=== PATIENT | male | born 1950 | race Two or more races ===

== ENCOUNTER 2018-07-21 19:03 | Inpatient (IN) | payer MEDICARE, MEDICAID ==
[~2018-07-21] VITALS: Ht 188 cm; Wt 113.4 kg
[2018-07-21] MEDS ORDERED: oxyCODONE HCL/Acetaminophen 5/325mg ORAL ONE ×2 (19:15→21:00)
[2018-07-21 19:20] VITALS: BP 125/89
--- NOTE | 2018-07-21 19:20 | NUR ---
ED Nurse Note: Pt was BIBA from SNF. C/O right leg celluilitis for 2-3 weeks and pain 10/10. Pt is A/O X 4, right leg redness and edema 3+, which was infected wound. Vital signs stable at this time, waiting for orders.
--- NOTE | 2018-07-21 20:30 | NUR ---
ED Nurse Note: Blood and urine sample collected and sent to Lab.
[2018-07-21 20:45] LABS: APPEARANCE,URINE CLEAR; BILIRUBIN, URINE NEGATIVE (NEGATIVE); COLOR,URINE PALE YELLOW; GLUCOSE, URINE (UA) NEGATIVE (NEGATIVE); KETONES,URINE NEGATIVE (NEGATIVE); LEUKOCYTE ESTERASE ,URINE 2+ (NEGATIVE); NITRITE,URINE NEGATIVE (NEGATIVE); PH,URINE 5 (4.5-8.0); PROTEIN,URINE 1+ (NEGATIVE); UROBILINOGEN,URINE NORMAL MG/DL (0.0-1.0)
[2018-07-21 20:52] LABS: BASOPHILS % (AUTO) 1.4 % (0.0-2.0); EOSINOPHILS % (AUTO) 1.7 % (0.0-3.0); HEMATOCRIT 39.6 % (42.0-52.0); HEMOGLOBIN 12.6 G/DL (14.2-18.0); LYMPHOCYTES % (AUTO) 7.9 % (20.0-45.0); MEAN CORPUSCULAR VOLUME 85 FL (80-99); PLATELET COUNT 177 K/UL (150-450); RED BLOOD COUNT 4.67 M/UL (4.70-6.10); RED CELL DISTRIBUTION WIDTH 18.1 % (11.6-14.8); WHITE BLOOD COUNT 10.7 K/UL (4.8-10.8)
--- NOTE | 2018-07-21 20:52 | NUR ---
ED Nurse Note: Pain meds given as ordered.
[2018-07-21 20:58] LABS: INR 1.2 (0.9-1.1)
[2018-07-21 21:03] LABS: ANION GAP 6 mmol/L (5-15); BLOOD UREA NITROGEN 35 mg/dL (7-18); CALCIUM 9.1 MG/DL (8.5-10.1); CARBON DIOXIDE 29 MMOL/L (21-32); CHLORIDE 103 MMOL/L (98-107); POTASSIUM 4.5 MMOL/L (3.5-5.1); SODIUM 138 MMOL/L (136-145)
[2018-07-21] MEDS ORDERED: Piperacillin/Tazobactam 3.375 GM in NS 110 ML IVPB ONE (21:15)
[2018-07-21] MEDS ORDERED: Vancomycin 1.5 GM in NS 275 ML IVPB ONE (21:15)
[2018-07-21 21:16] LABS: ALANINE AMINOTRANSFERASE 21 U/L (12-78); ALBUMIN 3.3 G/DL (3.4-5.0); ALBUMIN/GLOBULIN RATIO 0.8 (1.0-2.7); ALKALINE PHOSPHATASE 92 U/L (46-116); ASPARTATE AMINO TRANSFERASE 16 U/L (15-37); BILIRUBIN,TOTAL 1.2 MG/DL (0.2-1.0); CREATINE KINASE 64 U/L (26-308)
[2018-07-21 21:26] LABS: BILIRUBIN,DIRECT 0.3 MG/DL (0.0-0.3)
--- NOTE | 2018-07-21 21:27 | Emergency Room Report ---
History of Present Illness General Chief Complaint: Skin Rash/Abscess Source: Patient, EMS Present Illness HPI The patient presents with a chronic wound that is worsening on his right lower leg. This is being followed at a [place] [facility] as an outpatient. Patient denies any fevers or chills however the pain is increasing. Pain is sharp and aching at the site where the wounds are. There is also erythema of the skin. There is no pus but there is drainage. Status post coronary artery bypass graft surgery. History of of congestive heart failure. No orthopnea or chest pain. Patient claims his tetanus is up-to-date. No nausea, vomiting, diarrhea, dysuria, cough, sore throat. Patient is not amatory and therefore there are no exertional symptoms. Allergies: Uncoded Allergies: MUSHROOMS (Allergy, Unknown, 07/21/18) Patient History Past Medical History: see triage record Past Surgical History: CABG Social History: Denies: smoking Social History Narrative SNF Reviewed Nursing Documentation: PMH: Agreed; PSxH: Agreed Nursing Documentation-PMH Past Medical History: No History, Except For Hx Cardiac Problems: Yes - heart failure Hx Hypertension: Yes Hx Diabetes: Yes - type 2 Review of Systems All Other Systems: negative except mentioned in HPI Physical Exam Vital Signs Date Time Temp Pulse Resp B/P (MAP) Pulse Ox O2 Delivery O2 Flow Rate FiO2 07/21/18 18:56 97.9 84 16 125/89 99 Room Air Sp02 EP Interpretation: reviewed, normal General Appearance: well appearing, no apparent distress, GCS 15, non-toxic Head: normocephalic, atraumatic Eyes: bilateral eye normal inspection, bilateral eye PERRL, bilateral eye EOMI ENT: moist mucus membranes Neck: supple Respiratory: lungs clear, normal breath sounds Cardiovascular #1: regular rate, rhythm, edema - Right greater than left leg Cardiovascular #2: 2+ radial (R) Gastrointestinal: normal inspection, normal bowel sounds, non tender, no mass, non-distended Genitourinary: no CVA tenderness Musculoskeletal: back normal, normal range of motion Neurologic: alert, motor strength/tone normal, sensory intact, oriented - X2 Psychiatric: mood/affect normal Skin: warm/dry, other - Open wound right leg with serous drainage no pus also erythema Medical Decision Making Diagnostic Impression: Primary Impression: Cellulitis and abscess of lower extremity Additional Impressions: CHF (congestive heart failure) Qualified Codes: I50.9 - Heart failure, unspecified Renal insufficiency UTI (urinary tract infection) Qualified Codes: N39.0 - Urinary tract infection, site not specified ER Course Patient presents with erythema and increased pain and weeping right lower leg. Differential includes gangrene, cellulitis, edema, abscess, ulcer and DVT amongst others. Patient will be evaluated with EKG, chest x-ray labs include blood culture and wound culture. Treatment will be with oral analgesics and gentle IV hydration. EKG without injury. Chest x-ray post coronary artery bypass graft surgery and evidence of cardiomegaly and congestive failure which is mild. Labs with leukocytosis, renal insufficiency, elevated BNP. Due to BNP and chest x-ray IV hydration stopped. Antibiotics are begun. Patient improved with treatment however due to comorbidities and appearance of the wound right leg patient is admitted to the hospital for IV antibiotics and wound care evaluation. Admit medical floor Dr. Martinez. Laboratory Tests Test 07/21/18 20:27 White Blood Count 10.7 K/UL (4.8-10.8) Red Blood Count 4.67 M/UL (4.70-6.10) L Hemoglobin 12.6 G/DL (14.2-18.0) L Hematocrit 39.6 % (42.0-52.0) L Mean Corpuscular Volume 85 FL (80-99) Mean Corpuscular Hemoglobin 27.0 PG (27.0-31.0) Mean Corpuscular Hemoglobin Concent 31.9 G/DL (32.0-36.0) L Red Cell Distribution Width 18.1 % (11.6-14.8) H Platelet Count 177 K/UL (150-450) Mean Platelet Volume 7.0 FL (6.5-10.1) Neutrophils (%) (Auto) 80.0 % (45.0-75.0) H Lymphocytes (%) (Auto) 7.9 % (20.0-45.0) L Monocytes (%) (Auto) 9.0 % (1.0-10.0) Eosinophils (%) (Auto) 1.7 % (0.0-3.0) Basophils (%) (Auto) 1.4 % (0.0-2.0) Prothrombin Time 12.8 SEC (9.30-11.50) H Prothrombin Time INR 1.2 (0.9-1.1) H PTT 31 SEC (23-33) Urine Color Pale yellow Urine Appearance Clear Urine pH 5 (4.5-8.0) Urine Specific [place] 1.015 (1.005-1.035) Urine Protein 1+ (NEGATIVE) H Urine Glucose (UA) Negative (NEGATIVE) Urine Ketones Negative (NEGATIVE) Urine Blood Negative (NEGATIVE) Urine Nitrite Negative (NEGATIVE) Urine Bilirubin Negative (NEGATIVE) Urine Urobilinogen Normal MG/DL (0.0-1.0) Urine Leukocyte Esterase 2+ (NEGATIVE) H Urine RBC 0-2 /HPF (0 - 0) H Urine WBC 5-10 /HPF (0 - 0) H Urine Squamous Epithelial Cells None /LPF (NONE/OCC) Urine Bacteria Few /HPF (NONE) Sodium Level 138 MMOL/L (136-145) Potassium Level 4.5 MMOL/L (3.5-5.1) Chloride Level 103 MMOL/L (98-107) Carbon Dioxide Level 29 MMOL/L (21-32) Anion Gap 6 mmol/L (5-15) Blood Urea Nitrogen 35 mg/dL (7-18) H Creatinine 2.0 MG/DL (0.55-1.30) H Estimate Glomerular Filtration Rate 33.6 mL/min (>60) Glucose Level 112 MG/DL (74-106) H Lactic Acid Level 1.20 mmol/L (0.4-2.0) Calcium Level 9.1 MG/DL (8.5-10.1) Total Bilirubin 1.2 MG/DL (0.2-1.0) H Direct Bilirubin 0.3 MG/DL (0.0-0.3) Aspartate Amino Transferase (AST) 16 U/L (15-37) Alanine Aminotransferase (ALT) 21 U/L (12-78) Alkaline Phosphatase 92 U/L (46-116) Total Creatine Kinase 64 U/L (26-308) Troponin I 0.003 ng/mL (0.000-0.056) Pro-B-Type Natriuretic Peptide 29086 pg/mL (0-125) H Total Protein 7.5 G/DL (6.4-8.2) Albumin 3.3 G/DL (3.4-5.0) L Globulin 4.2 g/dL Albumin/Globulin Ratio 0.8 (1.0-2.7) L EKG Diagnostic Results Rate: normal Rhythm: NSR ST Segments: no acute changes - !st degree av block pvc Rhythm Strip Diag. Results EP Interpretation: yes Rhythm: NSR, no PVC's, no ectopy Chest X-Ray Diagnostic Results Chest X-Ray Diagnostic Results : Chest X-Ray Ordered: Yes # of Views/Limited/Complete: 1 View Indication: Other EP Interpretation: Yes Interpretation: no effusion, no pneumothorax, other - inc cor CABG Impression: Other Electronically Signed by: Electronically signed by Wai Rdz MD Last Vital Signs Date Time Temp Pulse Resp B/P (MAP) Pulse Ox O2 Delivery O2 Flow Rate FiO2 07/22/18 04:00 99.2 66 17 118/51 (73) 07/22/18 00:03 Room Air 07/21/18 23:28 99 Status: improved Disposition: ADMITTED INPATIENT Condition: Serious Referrals: Harsha Martinez MD (PCP) Wai Rdz MD Jul 21, 2018 21:27
--- NOTE | 2018-07-21 22:30 | NUR ---
ED Nurse Note: Vanco meds given. Wound c/s, MRSA, VRE SWAB collected and sent to Lab.
--- NOTE | 2018-07-21 23:28 | NUR ---
TRANSFER TO FLOOR: Patient [facility] as ordered. Report given to Helga/EMERY. Belongings sent with Pt and rechecked with RN. Pt is A/O X 4.
--- NOTE | 2018-07-22 | NUR ---
NURSE NOTES: Received patient from ER, reconciled medications, admit orders were obtained from MD and carried out. Patient is awake, alert, oriented, hard of hearing, incontinent times two, full code, on 2 gm sodium diet. VSS, afebrile, oriented patient to his room, patient is able to make his needs known. Call light is within reach, bed is in low position, locked and alarm is on. Will continue to monitor for safety and comfort.
[2018-07-22] MEDS ORDERED: ZOLPIDEM TARTRA10 MG ORAL (00:35)
[2018-07-22] MEDS ORDERED: ASPIR 8181 MG ORAL (00:35)
[2018-07-22] MEDS ORDERED: NOVOLOG100 UNIT/5 (00:35)
[2018-07-22] MEDS ORDERED: TERAZOSIN HCL2 MG PO (00:35)
[2018-07-22] MEDS ORDERED: LEVEMIR FL100 UNIT/2 SQ (00:35)
[2018-07-22] MEDS ORDERED: ALDACTONE25 MG ORAL (00:35)
[2018-07-22] MEDS ORDERED: HYDRALAZINE HCL25 M2 PO (00:35)
[2018-07-22] MEDS ORDERED: ACETAMINOPHEN325 M1 ORAL (00:35)
[2018-07-22] MEDS ORDERED: FLOMAX0.4 MG ORAL (00:35)
[2018-07-22] MEDS ORDERED: DIOVAN HCT 80MG1 TAB ORAL (00:35)
[2018-07-22] MEDS: HYDROcodone/Acetamin 10/325 tab ORAL PRN ×4 (03:50→20:01)
--- NOTE | 2018-07-22 03:56 | NUR ---
NURSE NOTES: Patient refused assessment by RN on his right foot cellulitis. CN was made aware.
[2018-07-22 04:00] VITALS: BP 118/51
[2018-07-22] MEDS ORDERED: HydrALAZINE 25mg tab ORAL SCH (06:00)
[2018-07-22] MEDS: NovoLOG Insulin Flexpen SUBQ SCH ×4 (06:45→20:34)
--- NOTE | 2018-07-22 07:10 | NUR ---
HAND-OFF: Report given to Mily LAND.
--- NOTE | 2018-07-22 07:29 | NUR ---
NURSE NOTES: Patient alert x4; on room air, no sign of distress and shortness of breath; IV Right For-arm flushes well; bed at lowest position, side rails up x2, breaks engaged; call light within reach; will keep monitoring.
[2018-07-22 08:00] VITALS: BP 102/70
[2018-07-22] MEDS: Tamsulosin 0.4mg cap ORAL SCH (08:25)
[2018-07-22] MEDS: HydrALAZINE 25mg tab ORAL SCH ×2 (08:25→16:17)
[2018-07-22] MEDS: Aspirin EC 81mg tab ORAL SCH (08:25)
[2018-07-22] MEDS: Spironolactone 25mg tab ORAL SCH (08:25)
[2018-07-22] MEDS ORDERED: Heparin 5000 units/ml inj SUBQ ONE (09:00)
[2018-07-22] MEDS ORDERED: Heparin 5000 units/ml inj SUBQ SCH (09:00)
--- NOTE | 2018-07-22 10:21 | Diagnostic Imaging Report ---
Indication: Shortness of breath Technique: One view of the chest Comparison: none Findings: The heart is enlarged. There is mild interstitial prominence diffusely. There may be curly B-lines peripherally. No focal airspace consolidation. No effusions. There is evidence of prior CABG Impression: Cardiomegaly Equivocal mild interstitial congestive changes. Correlate with clinical findings
--- NOTE | 2018-07-22 11:53 | NUR ---
NURSE NOTES: Vanoc Rx to pharmacy to dose, I spoke to pharmacist and pharmacy is the one to dose it.
[2018-07-22 12:00] VITALS: BP 113/79
[2018-07-22] MEDS ORDERED: Piperacillin/Tazobactam 3.375 GM in NS 110 ML IVPB SCH (13:30)
--- NOTE | 2018-07-22 14:54 | Diagnostic Imaging Report ---
APPROVED REPORT CPT Code: 16275 Present Symptoms Comments: Pain wound in the right ankle BILATERAL: Imaging reveals a patent deep venous system bilaterally. There is no evidence of thrombus within the common femoral, superficial femoral, popliteal or tibial segments. The greater saphenous veins are within normal limits. Doppler indicates normal spontaneous flow within these segments.
--- NOTE | 2018-07-22 15:22 | NUR ---
NURSE NOTES:WOUND CARE NOTES:Pt presented on admission with ulcerations ulcerations to Medial, Posterior and lateral aspect of R lower ext. Wounds are large but shallow with scattered yellow slough at base of wound.Irregular margins that are erythematous. Surrounding erythema with edema noted. Wounds exuding moderate amts serous exudate. Pt complains of pain when R leg elevated.Scars from Historical harvest graft noted to medial R tibia. Erythema noted to LLE .Xerosis skin LLE . Pt educated to importance of good hygiene practices .Instructed to wash and moisturize dry skin daily.Instructed to wash between toes but to avoid applying lotion between toes. Tx.Plan:Cleanse wounds R lower ext with Saline. Apply Silvasorb Gel to wounds. Apply Alginate. Cover with ABD pads. Wrap with Kerlix from Base of Toes to [place] Daily and PRN.
[2018-07-22 16:00] VITALS: BP 115/54
[2018-07-22] MEDS: Piperacillin/Tazobactam 3.375 GM in NS 110 ML IVPB SCH ×2 (16:17→22:43)
--- NOTE | 2018-07-22 16:44 | NUR ---
[employer] 68 Y/O MALE BIBA FROM [facility] TO [facility] CC:SKIN RASH/ABSCESS SI:CELLULITIS VS: BP 125/89, P 84, T 97.9, RR 16, SpO2 99 RBC 4.67, Hgb 12.6, Hct 39.6, BUN 35, Cr 2.0 IS:PERCOCET 5-325 1tab NS x1L IV VANCOMYCIN 275ml IVPB ZOSYN 110ml IVPB ADMITTED TO MED/SURG DCP: RETURN TO [facility]
--- NOTE | 2018-07-22 16:46 | Infectious Diseases Prog Note ---
Assessment/Plan Problems: (1) Cellulitis and abscess of lower extremity Assessment & Plan: continue vancomycin , add zosyn empirically, send wound culture , and blood culture, will order vascular study to rule out PVD or DVT (2) Sepsis Assessment & Plan: possible due to the above, continue wide spectrum antibiotics pending cultures (3) UTI (urinary tract infection) Assessment & Plan: already on zosyn pending culture (4) Renal insufficiency (5) Wound of right lower extremity Assessment & Plan: with infection and blisters, rule out underlying osteomyelitis , will order MRI of the right leg to confirm , continue wide spectrum antibiotics Subjective Allergies: Uncoded Allergies: MUSHROOMS (Allergy, Unknown, 07/21/18) Objective Vital Signs Last 24 Hour Vital Signs Date Time Temp Pulse Resp B/P (MAP) Pulse Ox O2 Delivery O2 Flow Rate FiO2 07/22/18 16:17 115/54 07/22/18 16:00 98.1 61 19 115/54 (74) 100 07/22/18 14:31 97.7 07/22/18 12:13 97.7 07/22/18 12:00 98.0 71 16 113/79 (90) 100 07/22/18 09:00 Room Air 07/22/18 08:25 102/70 07/22/18 08:00 97.7 72 18 102/70 (81) 99 07/22/18 04:00 99.2 66 17 118/51 (73) 07/22/18 00:03 Room Air 07/21/18 23:28 97.9 83 16 123/84 99 Room Air 07/21/18 19:20 97.9 83 16 125/89 99 Room Air 07/21/18 18:56 97.9 84 16 125/89 99 Room Air Height (Feet): 6 Height (Inches): 2.00 Weight (Pounds): 250 Microbiology Date/Time Source Procedure Growth Status 07/21/18 23:00 Leg Right Gram Stain - Final Resulted 07/21/18 23:00 Leg Right Wound Culture Pending Resulted Laboratory Tests Test 07/21/18 20:27 White Blood Count 10.7 K/UL (4.8-10.8) Red Blood Count 4.67 M/UL (4.70-6.10) L Hemoglobin 12.6 G/DL (14.2-18.0) L Hematocrit 39.6 % (42.0-52.0) L Mean Corpuscular Volume 85 FL (80-99) Mean Corpuscular Hemoglobin 27.0 PG (27.0-31.0) Mean Corpuscular Hemoglobin Concent 31.9 G/DL (32.0-36.0) L Red Cell Distribution Width 18.1 % (11.6-14.8) H Platelet Count 177 K/UL (150-450) Mean Platelet Volume 7.0 FL (6.5-10.1) Neutrophils (%) (Auto) 80.0 % (45.0-75.0) H Lymphocytes (%) (Auto) 7.9 % (20.0-45.0) L Monocytes (%) (Auto) 9.0 % (1.0-10.0) Eosinophils (%) (Auto) 1.7 % (0.0-3.0) Basophils (%) (Auto) 1.4 % (0.0-2.0) Prothrombin Time 12.8 SEC (9.30-11.50) H Prothromb Time International Ratio 1.2 (0.9-1.1) H Activated Partial Thromboplast Time 31 SEC (23-33) Urine Color Pale yellow Urine Appearance Clear Urine pH 5 (4.5-8.0) Urine Specific [place] 1.015 (1.005-1.035) Urine Protein 1+ (NEGATIVE) H Urine Glucose (UA) Negative (NEGATIVE) Urine Ketones Negative (NEGATIVE) Urine Blood Negative (NEGATIVE) Urine Nitrite Negative (NEGATIVE) Urine Bilirubin Negative (NEGATIVE) Urine Urobilinogen Normal MG/DL (0.0-1.0) Urine Leukocyte Esterase 2+ (NEGATIVE) H Urine RBC 0-2 /HPF (0 - 0) H Urine WBC 5-10 /HPF (0 - 0) H Urine Squamous Epithelial Cells None /LPF (NONE/OCC) Urine Bacteria Few /HPF (NONE) Sodium Level 138 MMOL/L (136-145) Potassium Level 4.5 MMOL/L (3.5-5.1) Chloride Level 103 MMOL/L (98-107) Carbon Dioxide Level 29 MMOL/L (21-32) Anion Gap 6 mmol/L (5-15) Blood Urea Nitrogen 35 mg/dL (7-18) H Creatinine 2.0 MG/DL (0.55-1.30) H Estimat Glomerular Filtration Rate 33.6 mL/min (>60) Glucose Level 112 MG/DL (74-106) H Lactic Acid Level 1.20 mmol/L (0.4-2.0) Calcium Level 9.1 MG/DL (8.5-10.1) Total Bilirubin 1.2 MG/DL (0.2-1.0) H Direct Bilirubin 0.3 MG/DL (0.0-0.3) Aspartate Amino Transf (AST/SGOT) 16 U/L (15-37) Alanine Aminotransferase (ALT/SGPT) 21 U/L (12-78) Alkaline Phosphatase 92 U/L (46-116) Total Creatine Kinase 64 U/L (26-308) Troponin I 0.003 ng/mL (0.000-0.056) Pro-B-Type Natriuretic Peptide 30278 pg/mL (0-125) H Total Protein 7.5 G/DL (6.4-8.2) Albumin 3.3 G/DL (3.4-5.0) L Globulin 4.2 g/dL Albumin/Globulin Ratio 0.8 (1.0-2.7) L Current Medications Medications (Trade) Dose Ordered Sig/Aureliano Route PRN Reason Start Time Stop Time Status Last Admin Dose Admin Acetaminophen (Tylenol) 325 mg Q4H PRN ORAL Mild Pain (Pain Scale 1-3) 07/22/18 01:45 08/21/18 01:44 07/22/18 11:43 Acetaminophen/ Hydrocodone Bitart ([place] 10/325) 1 tab Q4H PRN ORAL For Pain 07/22/18 00:00 07/29/18 00:00 07/22/18 14:01 Aspirin (Ecotrin) 81 mg DAILY ORAL 07/22/18 09:00 08/21/18 08:59 07/22/18 08:25 Dextrose (Dextrose 50%) 25 ml Q30M PRN IV Hypoglycemia 07/22/18 06:15 08/21/18 06:14 Dextrose (Dextrose 50%) 50 ml Q30M PRN IV Hypoglycemia 07/22/18 06:15 08/21/18 06:14 Hydralazine HCl (Apresoline) 25 mg Q8HR@0000,0800,1600 ORAL 07/22/18 08:00 08/21/18 07:59 07/22/18 16:17 Insulin Aspart (NovoLOG) BEFORE MEALS AND HS SUBQ 07/22/18 06:30 08/21/18 06:29 07/22/18 12:23 Piperacillin Sod/ Tazobactam Sod 3.375 gm/Sodium Chloride 110 ml @ 27.5 mls/hr EVERY 8 HOURS IVPB 07/22/18 15:30 07/29/18 15:29 07/22/18 16:17 Potassium Chloride (K-Dur) 20 meq DAILY ORAL 07/22/18 09:00 08/21/18 08:59 07/22/18 08:25 Spironolactone (Aldactone) 25 mg DAILY ORAL 07/22/18 09:00 08/21/18 08:59 07/22/18 08:25 Tamsulosin HCl (Flomax) 0.4 mg DAILY ORAL 07/22/18 09:00 08/21/18 08:59 07/22/18 08:25 Terazosin HCl (Hytrin) 2 mg BEDTIME ORAL 07/22/18 21:00 08/21/18 20:59 Vancomycin HCl (Vanco rx to dose) 1 ea DAILY MISC 07/22/18 09:00 08/21/18 08:59 Zolpidem Tartrate (Ambien) 5 mg BEDTIME PRN ORAL Insomnia 07/22/18 01:45 07/29/18 01:44 Linda Suazo M.D. July 22, 2018 16:46
--- NOTE | 2018-07-22 17:00 | NUR ---
NURSE NOTES: Wound care provided, patient tolerated well.
--- NOTE | 2018-07-22 19:15 | History and Physical Report ---
DATE OF ADMISSION: 07/21/2018 HISTORY OF PRESENT ILLNESS: This is a 68-year-old male, who came to the emergency room for having bilateral leg edema and cellulitis and right leg ulcer, which has been nonhealing and progressively worse. The patient denies any fever or chills. PAST MEDICAL HISTORY: Significant for renal insufficiency, diabetes, hypertension, comorbid obesity, and poor compliance. MEDICATIONS: See the list. ALLERGIES: NKA. FAMILY HISTORY: Noncontributory. SOCIAL HISTORY: The patient lives in a retirement, mostly wheelchair bound. REVIEW OF SYSTEMS: Generalized weakness. Tired. Intractable pain on both legs, as well as . PHYSICAL EXAMINATION: GENERAL: This is an elderly male, whose blood pressure is 130/90, pulse 74, and respirations 19. No fever. SKIN: Good skin turgor. HEENT: Mild jugular venous distention. CHEST: Bilaterally few crackles. CARDIOVASCULAR: Regular rhythm. Tachycardia. ABDOMEN: Soft. Positive bowel sounds. EXTREMITIES: Right leg ulcer and draining in both the legs. GENITOURINARY: Deferred. He has a poor circulation. LABORATORY EXAMINATION: White counts are 11,000. BUN and creatinine are high. Creatinine 2.5. ASSESSMENT: 1. Right leg non-healing ulcer. 2. Bilateral cellulitis. 3. CHF. 4. Hypertension. 5. Diabetes. 6. Chronic back pain. PLAN: We will admit on medical floor. Start intravenous Lasix and intravenous antibiotic, vancomycin. Check arterial venous duplex and consider ID consult as well as consider Nephro consult. Mik Martinez M.D. DR: LINDSAY JOB#: [id number] CC:
--- NOTE | 2018-07-22 19:28 | NUR ---
NURSE NOTES: Received patient in bed, awake, alert, oriented x 4, able to make his needs known, no acute distress noted, VSS, afebrile. Call light within reach, bed is in low position, locked and alarm is on. Will continue to monitor for safety and comfort.
--- NOTE | 2018-07-22 19:43 | NUR ---
HAND-OFF: Report given to EMERY Devine.
[2018-07-22 20:00] VITALS: BP 111/77
[2018-07-22] MEDS: Zolpidem 5mg tab ORAL PRN (20:25)
[2018-07-22] MEDS ORDERED: Vancomycin 1.5gm Premix IVPB SCH (21:00)
[2018-07-22] MEDS ORDERED: Vancomycin 1gm in D5W 275ml IVPB SCH (21:00)
[2018-07-22] MEDS ORDERED: Terazosin 1mg cap ORAL SCH (21:00)
--- NOTE | 2018-07-22 23:45 | Consultation ---
DATE OF CONSULTATION: 07/22/2018 INFECTIOUS DISEASES CONSULTATION CONSULTING PHYSICIAN: Linda Suazo M.D. REQUESTING PHYSICIAN: Harsha Martinez M.D. REASON FOR CONSULTATION: Right leg abscess, open wounds with blisters, and severe cellulitis. Recommendation for antibiotics treatment. HISTORY OF PRESENT ILLNESS: The patient is a 68-year-old male with past medical history of coronary artery disease, status post coronary artery bypass graft with vein harvested from the right lower extremity, diabetes, poorly controlled, hypertension, and heart failure, who had an issue with his right leg since his coronary artery bypass graft surgery, presented to [facility] emergency room with worsening right lower extremity redness, erythema, and wounds with purulent drainage. The patient had big blisters on his right leg, which burst couple of days ago and he started draining yellowish like material from both wounds. Right leg became red, tender, and swollen with inability to walk or put weight on them, on the right leg mainly. The patient was found to have significant redness and large medial anterior and lateral posterior wound in the mid right leg. So, he was started on vancomycin and Infectious Disease consultation was requested for antibiotics treatment and further management. PAST MEDICAL HISTORY: Significant for diabetes, hypertension, coronary artery disease, and heart failure. PAST SURGICAL HISTORY: He had coronary artery bypass graft. MEDICATIONS: He received vancomycin and Zosyn in the emergency room and currently on vancomycin. For the rest of his medications, please refer to [facility]. ALLERGIES: He is allergic to mushroom. FAMILY HISTORY: Noncontributory. SOCIAL HISTORY: The patient lives at home with his girlfriend. He is unemployed. Denied using any drugs, tobacco, or alcohol. REVIEW OF SYSTEMS: A 14-point of system reviewed were all negative apart from the one I mentioned above in my History and Physical. PHYSICAL EXAMINATION: VITAL SIGNS: Temperature 98.1, pulse 61, respirations 19, blood pressure 115/54, and saturation 100% on room air. GENERAL: A middle-aged male, lying in bed, awake, alert, and oriented x3, not in acute distress. HEENT: Normocephalic and atraumatic. Pupils are reactive to light equally. Moist oral mucosa. No exudate or thrush. NECK: Supple. No lymphadenopathy. CARDIOVASCULAR: Regular rate and rhythm. No murmur or gallop. LUNGS: Clear bilaterally. Diminished breathing sounds at the bases. No wheezing or rhonchi. ABDOMEN: Soft, nontender, and nondistended. Normal bowel sounds. No hepatosplenomegaly. No ascites. No rebound. EXTREMITY: He had significant right leg redness, edema, and tenderness with large wounds on the right posterior mid leg and right anterior mid leg area. Purulent discharge from both wounds with surrounding cellulitis, tenderness, and warmth. LABORATORY DATA: Labs showed white count of 10.7, hemoglobin of 12.6, and platelet count of 177,000. BUN of 35 and creatinine of 2. AST of 16 and ALT of 21. Urine analysis showed +2 leukocyte esterase, wbc 5 to 10, and few bacteria. IMAGING: Chest x-ray showed equivocal mild interstitial congestive changes. Venous Doppler showed patent deep vein system bilaterally. No evidence of thrombus within the common femoral, superficial, popliteal, or tibial segment. ASSESSMENT AND RECOMMENDATION: 1. Cellulitis and abscess of the right lower extremity. Continue vancomycin renally dosed by pharmacy. Add Zosyn empiric coverage. Send wound culture and blood culture. We will order arterial study to rule out peripheral vascular disease. The patient had venous Doppler, which was negative. 2. Sepsis due to the above, possible. Continue wide-spectrum antibiotics pending blood culture. 3. Wounds of the right lower extremity with infection and blisters . Rule out underlying osteo. We will order MRI of the right leg to confirm. Continue wide-spectrum antibiotics coverage for now. 4. Urinary tract infection. The patient is already on Zosyn pending culture. 5. Renal insufficiency. Continue hydration and renally dosed medicine as per pharmacy. Avoid nephrotoxic medications. Thank you for the consult. ID will continue to follow. Please feel free to call with any question. Linda Suazo M.D. DR: KASEY JOB#: [id number] CC:
[2018-07-23] VITALS: BP 127/86
[2018-07-23] MEDS: HydrALAZINE 25mg tab ORAL SCH ×3 (00:44→17:06)
[2018-07-23 04:00] VITALS: BP 122/84
[2018-07-23] MEDS: Piperacillin/Tazobactam 3.375 GM in NS 110 ML IVPB SCH ×3 (05:39→21:10)
[2018-07-23] MEDS: HYDROcodone/Acetamin 10/325 tab ORAL PRN ×4 (05:39→20:10)
[2018-07-23] MEDS: NovoLOG Insulin Flexpen SUBQ SCH ×4 (05:45→21:10)
--- NOTE | 2018-07-23 07:12 | NUR ---
HAND-OFF: Report given to Mily LAND.
--- NOTE | 2018-07-23 07:39 | NUR ---
NURSE NOTES: Patient alert x4, on room air, no sign of distress and shortness of breath; no sign of chest pain; IV Right For-arm, flushes well; bed at lowest position, side rails up, bed at lowest position; will check blood check as schedule; call light within reach; will keep monitoring.
[2018-07-23 08:00] VITALS: BP 117/80
[2018-07-23] MEDS: Tamsulosin 0.4mg cap ORAL SCH ×2 (08:55→17:06)
[2018-07-23] MEDS: Spironolactone 25mg tab ORAL SCH (08:55)
[2018-07-23] MEDS: Aspirin EC 81mg tab ORAL SCH (08:55)
[2018-07-23 12:00] VITALS: BP 124/88
--- NOTE | 2018-07-23 12:38 | NUR ---
NURSE NOTES: I received prescription of medication for patient and its on patient's chart. Addendum: 07/23/18 at 1239 by Ashli Benitez RN Please disregard the previous note. Its for another patient.
--- NOTE | 2018-07-23 13:36 | Consultation ---
History of Present Illness General Date patient seen: July 23, 2018 Reason for Hospitalization: Skin Rash/Abscess Present Illness HPI 68 year old male with past medical history of CAD s/p CABG with vein harvested from the right lower extremity, diabetes, hypertension, and heart failure, who presented to [facility] emergency room with worsening right lower extremity, redness, erythema, and wounds with drainage. States has had chronic issues with right leg since CABG. intermittent episodes of cellulitis and chronic wound changes. notes pain in leg and foot but improved since admission. no n/v/f/c. otherwise well. labs noted. Allergies: Uncoded Allergies: MUSHROOMS (Allergy, Unknown, 07/21/18) Medication History Scheduled Aspirin* (Aspir 81*), 81 MG ORAL DAILY, (Reported) Spironolactone (Aldactone), 25 MG ORAL DAILY, (Reported) Tamsulosin HCl (Flomax), 0.4 MG ORAL DAILY, (Reported) Valsartan (Diovan), 1 TAB ORAL DAILY, (Reported) Scheduled PRN Acetaminophen* (Acetaminophen 325MG Tablet*), 325 MG ORAL Q4H PRN for Mild Pain (Pain Scale 1-3), (Reported) Zolpidem Tartrate* (Zolpidem Tartrate*), 10 MG ORAL BEDTIME PRN for Insomnia, ( Reported) Miscellaneous Medications Hydralazine HCl (Hydralazine HCl), 25 MG PO, (Reported) Insulin Aspart (Novolog), (Reported) Insulin Detemir (Levemir Flextouch), 100 UNIT SQ, (Reported) Terazosin Hcl (Terazosin Hcl), 2 MG PO, (Reported) Patient History History Provided By: Patient, Medical Record, PMD Healthcare decision maker N Resuscitation status Full Code Advanced Directive on File No Past Medical/Surgical History Past Medical/Surgical History: (1) CHF (congestive heart failure) (2) Renal insufficiency (3) UTI (urinary tract infection) (4) Sepsis (5) Cellulitis and abscess of lower extremity (6) Wound of right lower extremity Review of Systems Review of Symptoms General ROS: no weight loss or fever Psychological ROS: no depression or mood changes, no memory loss Ophthalmic ROS: no visual changes or eye irritation ENT ROS: no nasal congestion, hearing loss, dizziness Allergy and Immunology ROS: no allergic symptoms or urticaria Hematological and Lymphatic ROS: no swollen glands, unusual bleeding or bruising Endocrine ROS: no polyuria, polydipsia, weight changes, temperature intolerance Respiratory ROS: no cough, shortness of breath, or wheezing Cardiovascular ROS: no chest pain or dyspnea on exertion Gastrointestinal ROS: denies abdominal pain, no bright red blood in stool. Musculoskeletal ROS: no myalgias or arthralgias Neurological ROS: no TIA or stroke symptoms Dermatological ROS: no new or changing skin lesions, rashes or pruritis Physical Exam Physical Exam General appearance: alert, cooperative, no distress, appears stated age Head: Normocephalic, without obvious abnormality, atraumatic Eyes: conjunctivae/corneas clear. PERRL, EOM's intact. Fundi benign Throat: Lips, mucosa, and tongue normal. Teeth and gums normal Neck: supple, symmetrical, trachea midline, no adenopathy, thyroid: not enlarged, symmetric, no tenderness/mass/nodules, no carotid bruit and no JVD Lungs: clear to auscultation bilaterally Heart: regular rate and rhythm, S1, S2 normal, no murmur, click, rub or gallop Abdomen: soft, non-tender. Bowel sounds normal. No masses, no organomegaly Extremities: extremities with edema and chronic skin changes from venous insufficiency. also noted to have cellulitis of right leg with multiple open wounds healing, atraumatic, no cyanosis Pulses: 2+ and symmetric Skin: Skin color, texture, turgor normal. No rashes or lesions Neurologic: Grossly normal Last 24 Hour Vital Signs Date Time Temp Pulse Resp B/P (MAP) Pulse Ox O2 Delivery O2 Flow Rate FiO2 07/23/18 12:00 97.6 83 19 124/88 (100) 98 07/23/18 11:26 98.9 07/23/18 09:31 98.9 07/23/18 09:00 Room Air 07/23/18 08:55 117/80 07/23/18 08:00 98.9 72 18 117/80 (92) 100 07/23/18 04:00 98.8 81 16 122/84 (97) 07/23/18 00:44 127/85 07/23/18 00:00 98.6 73 17 127/86 (100) 07/22/18 21:00 Room Air 07/22/18 20:00 98.7 75 17 111/77 (88) 07/22/18 16:17 115/54 07/22/18 16:00 98.1 61 19 115/54 (74) 100 Intake and Output 07/22/18 07/23/18 18:59 06:59 Intake Total 535.0 ml 507.5 ml Balance 535.0 ml 507.5 ml Intake Oral 480 ml 480 ml IV Total 55.0 ml 27.5 ml Laboratory Tests Test 07/22/18 18:15 Random Vancomycin Level 0.4 ug/mL Height (Feet): 6 Height (Inches): 2.00 Weight (Pounds): 250 Medications Current Medications Medications (Trade) Dose Ordered Sig/Aureliano Route PRN Reason Start Time Stop Time Status Last Admin Dose Admin Acetaminophen (Tylenol) 325 mg Q4H PRN ORAL Mild Pain (Pain Scale 1-3) 07/22/18 01:45 08/21/18 01:44 07/23/18 09:01 Acetaminophen/ Hydrocodone Bitart ([place] 10/325) 1 tab Q4H PRN ORAL For Pain 07/22/18 00:00 07/29/18 00:00 07/23/18 10:56 Aspirin (Ecotrin) 81 mg DAILY ORAL 07/22/18 09:00 08/21/18 08:59 07/23/18 08:55 Dextrose (Dextrose 50%) 25 ml Q30M PRN IV Hypoglycemia 07/22/18 06:15 08/21/18 06:14 Dextrose (Dextrose 50%) 50 ml Q30M PRN IV Hypoglycemia 07/22/18 06:15 08/21/18 06:14 Hydralazine HCl (Apresoline) 25 mg Q8HR@0000,0800,1600 ORAL 07/22/18 08:00 08/21/18 07:59 07/23/18 08:55 Insulin Aspart (NovoLOG) BEFORE MEALS AND HS SUBQ 07/22/18 06:30 08/21/18 06:29 07/23/18 12:02 Piperacillin Sod/ Tazobactam Sod 3.375 gm/Sodium Chloride 110 ml @ 27.5 mls/hr EVERY 8 HOURS IVPB 07/22/18 15:30 07/29/18 15:29 07/23/18 13:08 Potassium Chloride (K-Dur) 20 meq DAILY ORAL 07/22/18 09:00 08/21/18 08:59 07/23/18 08:55 Spironolactone (Aldactone) 25 mg DAILY ORAL 07/22/18 09:00 08/21/18 08:59 07/23/18 08:55 Tamsulosin HCl (Flomax) 0.4 mg DAILY ORAL 07/22/18 09:00 08/21/18 08:59 07/23/18 08:55 Terazosin HCl (Hytrin) 2 mg BEDTIME ORAL 07/22/18 21:00 08/21/18 20:59 07/22/18 20:25 Vancomycin HCl (Vanco rx to dose) 1 ea DAILY MISC 07/22/18 09:00 08/21/18 08:59 Zolpidem Tartrate (Ambien) 5 mg BEDTIME PRN ORAL Insomnia 07/22/18 01:45 07/29/18 01:44 07/22/18 20:25 Assessment/Plan Problem List: (1) CHF (congestive heart failure) ICD Codes: I50.9 - Heart failure, unspecified SNOMED: 11995607 Qualifiers: Qualified Codes: I50.9 - Heart failure, unspecified (2) Renal insufficiency ICD Codes: N28.9 - Disorder of kidney and ureter, unspecified SNOMED: 081547388, 195834013 (3) UTI (urinary tract infection) ICD Codes: N39.0 - Urinary tract infection, site not specified SNOMED: 49488608, 363559825 Qualifiers: Qualified Codes: N39.0 - Urinary tract infection, site not specified (4) Sepsis ICD Codes: A41.9 - Sepsis, unspecified organism SNOMED: 23041289 (5) Cellulitis and abscess of lower extremity Assessment & Plan: Patient presented on admission with ulcerations ulcerations to Medial, Posterior and lateral aspect of Right lower extremity. Wounds are large but shallow with scattered yellow slough at base of wound. Irregular margins that are erythematous. Surrounding erythema with edema noted. Wounds exuding moderate amounts of serous exudate. Pt complains of pain when R leg elevated. Scars from Historical harvest graft noted to medial R tibia. Erythema noted to LLE . Xerosis skin LLE . Pt educated to importance of good hygiene practices .Instructed to wash and moisturize dry skin daily.Instructed to wash between toes but to avoid applying lotion between toes. Tx.Plan: Cleanse wounds R lower ext with Saline. Apply Silvasorb Gel to wounds. Apply Alginate. Cover with ABD pads. Wrap with Kerlix from Base of Toes to [place] Daily and PRN. Keep lower extremities elevated when possible to help with venous outflow Abx as per ID, input noted and appreciated Will follow with recs thank you ICD Codes: L03.119 - Cellulitis of unspecified part of limb; L02.419 - Cutaneous abscess of limb, unspecified SNOMED: 554818565 (6) Wound of right lower extremity ICD Codes: S81.801A - Unspecified open wound, right lower leg, initial encounter SNOMED: 96901608, 534929045 Ezekiel Macias July 23, 2018 13:36
--- NOTE | 2018-07-23 14:29 | Cardiology Report ---
APPROVED REPORT EKG Measurement Heart [id number] MS [id number] Sinus rhythm with 1st degree AV block with occasional premature ventricular complexes Rightward axis Left bundle branch block Abnormal ECG
--- NOTE | 2018-07-23 15:53 | Consultation ---
Consult Note Consult Note asked to eval for renal insufficiency The patient presents with a chronic wound that is worsening on his right lower leg. This is being followed at a [facility] facility as an outpatient. Patient denies any fevers or chills however the pain is increasing. Pain is sharp and aching at the site where the wounds are. There is also erythema of the skin. There is no pus but there is drainage. Status post coronary artery bypass graft surgery. History of of congestive heart failure. No orthopnea or chest pain. Patient claims his tetanus is up-to-date. No nausea, vomiting, diarrhea, dysuria, cough, sore throat. Patient is not amatory and therefore there are no exertional symptoms. Allergies: MUSHROOMS (Allergy, Unknown, 07/21/18) Past Surgical History: CABG Social History: Denies: smoking Social History Narrative SNF Past Medical History: No History, Except For Hx Cardiac Problems: Yes - heart failure Hx Hypertension: Yes Hx Diabetes: Yes - type 2 data reviewed patient examined Assessment/Plan Renal failure , Acute on chronic DM, Proteinuria HTN Cellulitis and abscess of lower extremity , Wound of right lower extremity UTI (urinary tract infection) Keep BP and BS in check antibiotics Urine studies Avoid Nephrotoxics Per orders Michael Eaton MD July 23, 2018 15:53
[2018-07-23 16:00] VITALS: BP 128/81
--- NOTE | 2018-07-23 16:18 | NUR ---
NURSE NOTES: Dressing on the Right Cellulitis changed as Dr Macias ordered. Patient tolerated well.
--- NOTE | 2018-07-23 16:33 | Infectious Diseases Prog Note ---
Assessment/Plan Problems: (1) Cellulitis and abscess of lower extremity Assessment & Plan: continue vancomycin , add zosyn empirically, send wound culture , and blood culture, will order vascular study to rule out PVD or DVT (2) Sepsis Assessment & Plan: possible due to the above, continue wide spectrum antibiotics pending cultures (3) UTI (urinary tract infection) Assessment & Plan: already on zosyn pending culture (4) Renal insufficiency Assessment & Plan: continue hydration, monitor renal function (5) Wound of right lower extremity Assessment & Plan: with infection and blisters, rule out underlying osteomyelitis , will order MRI of the right leg to confirm , continue wide spectrum antibiotics Subjective Constitutional: Reports: no symptoms HEENT: Reports: no symptoms Respiratory: Reports: no symptoms Breasts: Reports: no symptoms Cardiovascular: Reports: no symptoms Gastrointestinal/Abdominal: Reports: no symptoms Genitourinary: Reports: no symptoms Neurologic: Reports: no symptoms Psychiatric: Reports: no symptoms Skin: Reports: ulcer Endocrine: Reports: no symptoms Hematologic: Reports: no symptoms Musculoskeletal: Reports: pain, swelling Allergies: Uncoded Allergies: MUSHROOMS (Allergy, Unknown, 07/21/18) Objective Vital Signs Last 24 Hour Vital Signs Date Time Temp Pulse Resp B/P (MAP) Pulse Ox O2 Delivery O2 Flow Rate FiO2 07/23/18 15:34 Room Air 07/23/18 12:00 97.6 83 19 124/88 (100) 98 07/23/18 11:26 98.9 07/23/18 09:31 98.9 07/23/18 09:00 Room Air 07/23/18 08:55 117/80 07/23/18 08:00 98.9 72 18 117/80 (92) 100 07/23/18 04:00 98.8 81 16 122/84 (97) 07/23/18 00:44 127/85 07/23/18 00:00 98.6 73 17 127/86 (100) 07/22/18 21:00 Room Air 07/22/18 20:00 98.7 75 17 111/77 (88) Height (Feet): 6 Height (Inches): 2.00 Weight (Pounds): 250 General Appearance: WD/WN, no acute distress HEENT: normocephalic, atraumatic, anicteric, mucous membranes moist, PERRL, EOMI, pharynx normal, supple, no JVD Respiratory/Chest: chest wall non-tender, lungs clear, normal breath sounds, no respiratory distress, no accessory muscle use Cardiovascular: normal peripheral pulses, normal rate, regular rhythm, no gallop/murmur, no JVD Abdomen: normal bowel sounds, soft, non tender, no organomegaly, non distended , no mass, no scars Extremities: no cyanosis, no clubbing Skin: no rash, no lesions, no ulcers Neurologic/Psychiatric: alert, oriented x 3, responsive Lymphatic: no neck adenopathy, no groin adenopathy Musculoskeletal: normal muscle bulk, no effusion Microbiology Date/Time Source Procedure Growth Status 07/21/18 20:38 Blood Blood Culture - Preliminary NO GROWTH AFTER 24 HOURS Resulted 07/21/18 20:27 Blood Blood Culture - Preliminary NO GROWTH AFTER 24 HOURS Resulted 07/21/18 23:00 Leg Right Gram Stain - Final Resulted 07/21/18 23:00 Leg Right Wound Culture Pending Resulted Laboratory Tests Test 07/22/18 18:15 Random Vancomycin Level 0.4 ug/mL Current Medications Medications (Trade) Dose Ordered Sig/Aureliano Route PRN Reason Start Time Stop Time Status Last Admin Dose Admin Acetaminophen (Tylenol) 325 mg Q4H PRN ORAL Mild Pain (Pain Scale 1-3) 07/22/18 01:45 08/21/18 01:44 07/23/18 09:01 Acetaminophen/ Hydrocodone Bitart ([place] 10/325) 1 tab Q4H PRN ORAL For Pain 07/22/18 00:00 07/29/18 00:00 07/23/18 16:03 Aspirin (Ecotrin) 81 mg DAILY ORAL 07/22/18 09:00 08/21/18 08:59 07/23/18 08:55 Clonidine HCl (Catapres Tab) 0.1 mg Q4H PRN ORAL BP over 160 syst 07/23/18 16:00 08/22/18 15:59 Dextrose (Dextrose 50%) 25 ml Q30M PRN IV Hypoglycemia 07/22/18 06:15 08/21/18 06:14 Dextrose (Dextrose 50%) 50 ml Q30M PRN IV Hypoglycemia 07/22/18 06:15 08/21/18 06:14 Docusate Sodium (Colace) 100 mg TID ORAL 07/23/18 18:00 08/22/18 17:59 Hydralazine HCl (Apresoline) 25 mg Q8HR@0000,0800,1600 ORAL 07/22/18 08:00 08/21/18 07:59 07/23/18 08:55 Insulin Aspart (NovoLOG) BEFORE MEALS AND HS SUBQ 07/22/18 06:30 08/21/18 06:29 07/23/18 12:02 Piperacillin Sod/ Tazobactam Sod 3.375 gm/Sodium Chloride 110 ml @ 27.5 mls/hr EVERY 8 HOURS IVPB 07/22/18 15:30 07/29/18 15:29 07/23/18 13:08 Potassium Chloride (K-Dur) 20 meq DAILY ORAL 07/22/18 09:00 08/21/18 08:59 07/23/18 08:55 Spironolactone (Aldactone) 25 mg DAILY ORAL 07/22/18 09:00 08/21/18 08:59 07/23/18 08:55 Tamsulosin HCl (Flomax) 0.4 mg BID ORAL 07/23/18 18:00 08/21/18 08:59 Tamsulosin HCl (Flomax) 0.4 mg DAILY ORAL 07/22/18 09:00 07/23/18 21:00 07/23/18 08:55 Vancomycin HCl (Vanco rx to dose) 1 ea DAILY MISC 07/22/18 09:00 08/21/18 08:59 Zolpidem Tartrate (Ambien) 5 mg BEDTIME PRN ORAL Insomnia 07/22/18 01:45 07/29/18 01:44 07/22/18 20:25 Linda Suazo M.D. July 23, 2018 16:33
--- NOTE | 2018-07-23 17:00 | NUR ---
NURSE NOTES: Urine collecting container provided to patient, will keep monitoring.
[2018-07-23] MEDS: Docusate 100mg cap ORAL SCH (17:06)
[2018-07-23] MEDS ORDERED: Docusate 100mg cap ORAL SCH (18:00)
--- NOTE | 2018-07-23 19:47 | NUR ---
HAND-OFF: Report given to EMERY Foss.
--- NOTE | 2018-07-23 19:48 | NUR ---
NURSE NOTES: Received patient in no apparent distress. A&OX4. IV was leaking, new IV inserted, left forearm, G22, patent and intact. Dressing on right leg, dry and intact. Urine sample collected. Bed in lowest position. Call light within reach. Will continue to monitor.
[2018-07-23 20:00] VITALS: BP 115/77
--- NOTE | 2018-07-23 21:15 | Progress Note ---
DATE: 07/23/2018 SUBJECTIVE: This is an elderly male, currently doing fine. Going for MRI of the leg. OBJECTIVE: VITAL SIGNS: Blood pressure 128/81, pulse 61, temperature 98.8. HEENT: NAD. CHEST: Bilaterally clear. CARDIOVASCULAR: Regular rhythm. ABDOMEN: Soft. EXTREMITIES: Bilateral leg ulcer. GENITOURINARY: Examination deferred. ASSESSMENT: 1. Cellulitis. 2. Leg ulcer. 3. Hypertension. 4. Diabetes. 5. Chronic pain. We will currently continue Lasix, bronchodilator treatments. Continue Zosyn, vancomycin. ID is on consult. Mik Martinez M.D. DR: ANNA JOB#: [id number] CC:
[2018-07-23] MEDS: Zolpidem 5mg tab ORAL PRN (22:19)
[2018-07-24] VITALS: BP 133/76
[2018-07-24] MEDS: HydrALAZINE 25mg tab ORAL SCH ×3 (00:41→15:52)
[2018-07-24] MEDS: HYDROcodone/Acetamin 10/325 tab ORAL PRN ×5 (03:08→22:56)
[2018-07-24 04:00] VITALS: BP 100/67
[2018-07-24] MEDS: NovoLOG Insulin Flexpen SUBQ SCH ×4 (06:30→20:47)
[2018-07-24] MEDS: Piperacillin/Tazobactam 3.375 GM in NS 110 ML IVPB SCH ×2 (06:33→14:18)
[2018-07-24 07:04] LABS: BASOPHILS % (AUTO) 0.8 % (0.0-2.0); EOSINOPHILS % (AUTO) 2.8 % (0.0-3.0); HEMATOCRIT 36.8 % (42.0-52.0); HEMOGLOBIN 11.6 G/DL (14.2-18.0); LYMPHOCYTES % (AUTO) 10.3 % (20.0-45.0); MEAN CORPUSCULAR VOLUME 87 FL (80-99); NEUTROPHILS % (AUTO) 77.1 % (45.0-75.0); PLATELET COUNT 143 K/UL (150-450); RED BLOOD COUNT 4.24 M/UL (4.70-6.10); WHITE BLOOD COUNT 7.3 K/UL (4.8-10.8)
[2018-07-24 07:19] LABS: PHOSPHORUS 3.7 MG/DL (2.5-4.9)
[2018-07-24 07:20] LABS: ALANINE AMINOTRANSFERASE 17 U/L (12-78); ALBUMIN 2.6 G/DL (3.4-5.0); ALBUMIN/GLOBULIN RATIO 0.7 (1.0-2.7); ALKALINE PHOSPHATASE 73 U/L (46-116); ANION GAP 8 mmol/L (5-15); ASPARTATE AMINO TRANSFERASE 13 U/L (15-37); BILIRUBIN,DIRECT 0.3 MG/DL (0.0-0.3); BILIRUBIN,TOTAL 1.3 MG/DL (0.2-1.0); BLOOD UREA NITROGEN 35 mg/dL (7-18); CALCIUM 8.2 MG/DL (8.5-10.1); CARBON DIOXIDE 26 MMOL/L (21-32); CHLORIDE 104 MMOL/L (98-107); CHOLESTEROL 116 MG/DL (< 200); CREATININE 2.2 MG/DL (0.55-1.30); HDL CHOLESTEROL 34 MG/DL (40-60); POTASSIUM 4.2 MMOL/L (3.5-5.1); SODIUM 138 MMOL/L (136-145); TRIGLYCERIDES 56 MG/DL (30-150)
--- NOTE | 2018-07-24 07:30 | NUR ---
HAND-OFF: Report given to Jennifer LAND.
--- NOTE | 2018-07-24 07:44 | NUR ---
NURSE NOTES: RN received pt alert and oriented in bed, eating breakfast. No acute distress or SOB. Bed in low, locked position, call light within reach. Will continue plan of care.
[2018-07-24 07:54] LABS: IRON 26 ug/dL (50-175); TOTAL IRON BINDING CAPACITY 275 ug/dL (250-450)
[2018-07-24 08:00] VITALS: BP 124/80
[2018-07-24 08:02] LABS: % IRON SATURATION 9 % (15-50)
[2018-07-24] MEDS: Aspirin EC 81mg tab ORAL SCH (08:25)
[2018-07-24] MEDS: Tamsulosin 0.4mg cap ORAL SCH ×2 (08:25→17:31)
[2018-07-24] MEDS: Spironolactone 25mg tab ORAL SCH (08:25)
[2018-07-24] MEDS: Docusate 100mg cap ORAL SCH ×3 (08:26→17:31)
[2018-07-24] MEDS ORDERED: Vancomycin 1.25gm Premix IVPB ONE (09:00)
--- NOTE | 2018-07-24 09:45 | NUR ---
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 Charge Nurse and Dr. Martinez notified. Per Dr. Martinez, RN to notify Dr. Patel. RN left message; awaiting call back / orders. Pt moved to contact precaution room. Addendum: 07/24/18 at 1014 by LACY RIVERA RN Dr. Patel replied to contact Dr. Suazo. Dr. Suazo notified.
--- NOTE | 2018-07-24 11:16 | Diagnostic Imaging Report ---
Indication: Chronic wounds on the right leg Technique: Sagittal, axial, coronal T1 and STIR images obtained of the distal tibia and fibula Comparison: none Findings: There is generalized edema of the subcutaneous fat and deep compartments. No discrete focal fluid collections to suggest abscess demonstrated. No abnormal marrow signal to suggest acute osteomyelitis is evident. There is a corticated somewhat bubbly appearing lesion extending from the deep cortical surface of the posterior tibia into the marrow space. This is approximately 2 cm in length, 1 cm transverse, and 0.5 cm AP. Impression: No evidence of acute osteomyelitis Diffuse edema of the subcutaneous fat and deep muscular compartments. This could indicate cellulitis/myositis, or could be edema of vasogenic origin. 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
[2018-07-24 12:00] VITALS: BP 103/62
--- NOTE | 2018-07-24 13:38 | Surgery Progress Note ---
Surgery Progress Note Subjective Additional Comments no acute events. comfortable. stable. states improving. labs okay exam improved Objective Last 24 Hour Vital Signs Date Time Temp Pulse Resp B/P (MAP) Pulse Ox O2 Delivery O2 Flow Rate FiO2 07/24/18 12:00 97.6 76 18 103/62 (76) 100 07/24/18 08:56 98.7 07/24/18 08:26 124/80 07/24/18 08:00 98.7 82 20 124/80 (95) 98 07/24/18 04:00 99.0 79 18 100/67 (78) 98 07/24/18 00:41 133/76 07/24/18 00:00 98.9 76 18 133/76 (95) 99 07/23/18 21:00 Room Air 07/23/18 20:00 98.8 77 18 115/77 (90) 100 07/23/18 17:06 128/81 07/23/18 16:00 98.8 65 19 128/81 (97) 98 07/23/18 15:34 Room Air I&O Intake and Output 07/23/18 07/24/18 19:00 07:00 Intake Total 1092.5 ml 110.0 ml Output Total 400 ml Balance 1092.5 ml -290.0 ml IV Total 192.5 ml 110.0 ml Other 900 ml Output Urine Total 400 ml Dressing: dry Wound: clean Drains: none Cardiovascular: RSR Respiratory: clear Abdomen: soft, non-tender, present bowel sounds, non-distended Extremities: edema, tenderness, no cyanosis Laboratory Tests Test 07/23/18 20:00 07/24/18 01:24 07/24/18 04:50 Urine Random Sodium 34 mmol/L (20-110) Urine Eosinophils None seen (NONE SEEN) White Blood Count 7.3 K/UL (4.8-10.8) Red Blood Count 4.24 M/UL (4.70-6.10) L Hemoglobin 11.6 G/DL (14.2-18.0) L Hematocrit 36.8 % (42.0-52.0) L Mean Corpuscular Volume 87 FL (80-99) Mean Corpuscular Hemoglobin 27.5 PG (27.0-31.0) Mean Corpuscular Hemoglobin Concent 31.6 G/DL (32.0-36.0) L Red Cell Distribution Width 18.0 % (11.6-14.8) H Platelet Count 143 K/UL (150-450) L Mean Platelet Volume 8.8 FL (6.5-10.1) Neutrophils (%) (Auto) 77.1 % (45.0-75.0) H Lymphocytes (%) (Auto) 10.3 % (20.0-45.0) L Monocytes (%) (Auto) 9.0 % (1.0-10.0) Eosinophils (%) (Auto) 2.8 % (0.0-3.0) Basophils (%) (Auto) 0.8 % (0.0-2.0) Sodium Level 138 MMOL/L (136-145) Potassium Level 4.2 MMOL/L (3.5-5.1) Chloride Level 104 MMOL/L (98-107) Carbon Dioxide Level 26 MMOL/L (21-32) Anion Gap 8 mmol/L (5-15) Blood Urea Nitrogen 35 mg/dL (7-18) H Creatinine 2.2 MG/DL (0.55-1.30) H Estimat Glomerular Filtration Rate 30.1 mL/min (>60) Glucose Level 64 MG/DL (74-106) L Hemoglobin A1c 6.6 % (4.3-6.0) H Uric Acid 5.9 MG/DL (2.6-7.2) Calcium Level 8.2 MG/DL (8.5-10.1) L Phosphorus Level 3.7 MG/DL (2.5-4.9) Magnesium Level 2.2 MG/DL (1.8-2.4) Iron Level 26 ug/dL (50-175) L Total Iron Binding Capacity 275 ug/dL (250-450) Percent Iron Saturation 9 % (15-50) L Unsaturated Iron Binding 249 ug/dL (112-346) Ferritin 73 NG/ML (8-388) Total Bilirubin 1.3 MG/DL (0.2-1.0) H Direct Bilirubin 0.3 MG/DL (0.0-0.3) Gamma Glutamyl Transpeptidase 193 U/L (5-85) H Aspartate Amino Transf (AST/SGOT) 13 U/L (15-37) L Alanine Aminotransferase (ALT/SGPT) 17 U/L (12-78) Alkaline Phosphatase 73 U/L (46-116) C-Reactive Protein, Quantitative 4.7 mg/dL (0.00-0.90) H Pro-B-Type Natriuretic Peptide 65876 pg/mL (0-125) H Total Protein 6.4 G/DL (6.4-8.2) Albumin 2.6 G/DL (3.4-5.0) L Globulin 3.8 g/dL Albumin/Globulin Ratio 0.7 (1.0-2.7) L Triglycerides Level 56 MG/DL (30-150) Cholesterol Level 116 MG/DL (< 200) LDL Cholesterol 80 mg/dL (<100) HDL Cholesterol 34 MG/DL (40-60) L Cholesterol/HDL Ratio 3.4 (3.3-4.4) Vitamin B12 Level 210 PG/ML (193-986) Folate 10.1 NG/ML (8.6-58.9) Thyroid Stimulating Hormone (TSH) 10.994 uiU/mL (0.358-3.740) Random Vancomycin Level 8.3 ug/mL Plan Problems: (1) CHF (congestive heart failure) (2) Renal insufficiency (3) UTI (urinary tract infection) (4) Sepsis (5) Cellulitis and abscess of lower extremity Assessment & Plan: Patient presented on admission with ulcerations ulcerations to Medial, Posterior and lateral aspect of Right lower extremity. Wounds are large but shallow with scattered yellow slough at base of wound. Irregular margins that are erythematous. Surrounding erythema with edema noted. Wounds exuding moderate amounts of serous exudate. Pt complains of pain when R leg elevated. Scars from Historical harvest graft noted to medial R tibia. Erythema noted to LLE . Xerosis skin LLE . Pt educated to importance of good hygiene practices .Instructed to wash and moisturize dry skin daily.Instructed to wash between toes but to avoid applying lotion between toes. Tx.Plan: Cleanse wounds R lower ext with Saline. Apply Silvasorb Gel to wounds. Apply Alginate. Cover with ABD pads. Wrap with Kerlix from Base of Toes to [place] Daily and PRN. Keep lower extremities elevated when possible to help with venous outflow Abx as per ID, input noted and appreciated Will follow with recs thank you (6) Wound of right lower extremity Ezekiel Macias July 24, 2018 13:38
[2018-07-24 16:00] VITALS: BP 128/91
--- NOTE | 2018-07-24 16:25 | Infectious Diseases Prog Note ---
Assessment/Plan Problems: (1) Cellulitis and abscess of lower extremity Assessment & Plan: continue vancomycin , and zosyn empirically, pending wound culture , and blood culture, vascular study to rule out PVD , no evidence of DVT on doppler (2) Sepsis Assessment & Plan: possible due to the above, continue wide spectrum antibiotics pending cultures (3) UTI (urinary tract infection) Assessment & Plan: already on zosyn pending culture (4) Renal insufficiency Assessment & Plan: continue hydration, monitor renal function (5) Wound of right lower extremity Assessment & Plan: with infection and blisters, rule out underlying osteomyelitis , will order MRI of the right leg to confirm , continue wide spectrum antibiotics Subjective Constitutional: Reports: no symptoms HEENT: Reports: no symptoms Respiratory: Reports: no symptoms Breasts: Reports: no symptoms Cardiovascular: Reports: no symptoms Gastrointestinal/Abdominal: Reports: no symptoms Genitourinary: Reports: no symptoms Neurologic: Reports: no symptoms Psychiatric: Reports: no symptoms Skin: Reports: no symptoms Endocrine: Reports: no symptoms Hematologic: Reports: no symptoms Musculoskeletal: Reports: no symptoms Allergies: Uncoded Allergies: MUSHROOMS (Allergy, Unknown, 07/21/18) Objective Vital Signs Last 24 Hour Vital Signs Date Time Temp Pulse Resp B/P (MAP) Pulse Ox O2 Delivery O2 Flow Rate FiO2 07/24/18 15:52 128/91 07/24/18 14:48 98.7 07/24/18 13:12 98.7 07/24/18 12:00 97.6 76 18 103/62 (76) 100 07/24/18 09:00 Room Air 07/24/18 08:26 124/80 07/24/18 08:00 98.7 82 20 124/80 (95) 98 07/24/18 04:00 99.0 79 18 100/67 (78) 98 07/24/18 00:41 133/76 07/24/18 00:00 98.9 76 18 133/76 (95) 99 07/23/18 21:00 Room Air 07/23/18 20:00 98.8 77 18 115/77 (90) 100 07/23/18 17:06 128/81 Height (Feet): 6 Height (Inches): 2.00 Weight (Pounds): 250 General Appearance: WD/WN, no acute distress HEENT: normocephalic, atraumatic, anicteric, mucous membranes moist, PERRL Respiratory/Chest: chest wall non-tender, lungs clear, normal breath sounds, no respiratory distress, no accessory muscle use, decreased breath sounds, crackles/rales Cardiovascular: normal peripheral pulses, normal rate, regular rhythm, no gallop/murmur, no JVD Abdomen: normal bowel sounds, soft, non tender, no organomegaly, non distended , no mass, no scars Genitourinary: normal external genitalia Extremities: no cyanosis, no clubbing Skin: no lesions, rash, ulcers 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 Complete 07/23/18 20:00 Urine,Clean Catch Urine Culture - Preliminary NO GROWTH Resulted 07/21/18 23:00 Rectum - Final NO CARBAPENEM-RESISTANT ENTEROBACTERI... Complete 07/21/18 23:00 Rectum VRE Culture - Final Enterococcus Faecalis - Vre Complete 07/21/18 23:00 Leg Right Gram Stain - Final Resulted 07/21/18 23:00 Wound Culture - Preliminary Gram Negative Bacillus 1 Gram Negative Bacillus 2 Resulted Laboratory Tests Test 07/23/18 20:00 07/24/18 01:24 07/24/18 04:50 Urine Random Sodium 34 mmol/L (20-110) Urine Eosinophils None seen (NONE SEEN) White Blood Count 7.3 K/UL (4.8-10.8) Red Blood Count 4.24 M/UL (4.70-6.10) L Hemoglobin 11.6 G/DL (14.2-18.0) L Hematocrit 36.8 % (42.0-52.0) L Mean Corpuscular Volume 87 FL (80-99) Mean Corpuscular Hemoglobin 27.5 PG (27.0-31.0) Mean Corpuscular Hemoglobin Concent 31.6 G/DL (32.0-36.0) L Red Cell Distribution Width 18.0 % (11.6-14.8) H Platelet Count 143 K/UL (150-450) L Mean Platelet Volume 8.8 FL (6.5-10.1) Neutrophils (%) (Auto) 77.1 % (45.0-75.0) H Lymphocytes (%) (Auto) 10.3 % (20.0-45.0) L Monocytes (%) (Auto) 9.0 % (1.0-10.0) Eosinophils (%) (Auto) 2.8 % (0.0-3.0) Basophils (%) (Auto) 0.8 % (0.0-2.0) Sodium Level 138 MMOL/L (136-145) Potassium Level 4.2 MMOL/L (3.5-5.1) Chloride Level 104 MMOL/L (98-107) Carbon Dioxide Level 26 MMOL/L (21-32) Anion Gap 8 mmol/L (5-15) Blood Urea Nitrogen 35 mg/dL (7-18) H Creatinine 2.2 MG/DL (0.55-1.30) H Estimat Glomerular Filtration Rate 30.1 mL/min (>60) Glucose Level 64 MG/DL (74-106) L Hemoglobin A1c 6.6 % (4.3-6.0) H Uric Acid 5.9 MG/DL (2.6-7.2) Calcium Level 8.2 MG/DL (8.5-10.1) L Phosphorus Level 3.7 MG/DL (2.5-4.9) Magnesium Level 2.2 MG/DL (1.8-2.4) Iron Level 26 ug/dL (50-175) L Total Iron Binding Capacity 275 ug/dL (250-450) Percent Iron Saturation 9 % (15-50) L Unsaturated Iron Binding 249 ug/dL (112-346) Ferritin 73 NG/ML (8-388) Total Bilirubin 1.3 MG/DL (0.2-1.0) H Direct Bilirubin 0.3 MG/DL (0.0-0.3) Gamma Glutamyl Transpeptidase 193 U/L (5-85) H Aspartate Amino Transf (AST/SGOT) 13 U/L (15-37) L Alanine Aminotransferase (ALT/SGPT) 17 U/L (12-78) Alkaline Phosphatase 73 U/L (46-116) C-Reactive Protein, Quantitative 4.7 mg/dL (0.00-0.90) H Pro-B-Type Natriuretic Peptide 58968 pg/mL (0-125) H Total Protein 6.4 G/DL (6.4-8.2) Albumin 2.6 G/DL (3.4-5.0) L Globulin 3.8 g/dL Albumin/Globulin Ratio 0.7 (1.0-2.7) L Triglycerides Level 56 MG/DL (30-150) Cholesterol Level 116 MG/DL (< 200) LDL Cholesterol 80 mg/dL (<100) HDL Cholesterol 34 MG/DL (40-60) L Cholesterol/HDL Ratio 3.4 (3.3-4.4) Vitamin B12 Level 210 PG/ML (193-986) Folate 10.1 NG/ML (8.6-58.9) Thyroid Stimulating Hormone (TSH) 10.994 uiU/mL (0.358-3.740) Random Vancomycin Level 8.3 ug/mL Current Medications Medications (Trade) Dose Ordered Sig/Aureliano Route PRN Reason Start Time Stop Time Status Last Admin Dose Admin Acetaminophen (Tylenol) 325 mg Q4H PRN ORAL Mild Pain (Pain Scale 1-3) 07/22/18 01:45 08/21/18 01:44 07/24/18 12:42 Acetaminophen/ Hydrocodone Bitart ([place] 10/325) 1 tab Q4H PRN ORAL For Pain 07/22/18 00:00 07/29/18 00:00 07/24/18 14:18 Aspirin (Ecotrin) 81 mg DAILY ORAL 07/22/18 09:00 08/21/18 08:59 07/24/18 08:25 Clonidine HCl (Catapres Tab) 0.1 mg Q4H PRN ORAL BP over 160 syst 07/23/18 16:00 08/22/18 15:59 Dextrose (Dextrose 50%) 25 ml Q30M PRN IV Hypoglycemia 07/22/18 06:15 08/21/18 06:14 Dextrose (Dextrose 50%) 50 ml Q30M PRN IV Hypoglycemia 07/22/18 06:15 08/21/18 06:14 Docusate Sodium (Colace) 100 mg TID ORAL 07/23/18 18:00 08/22/18 17:59 07/24/18 12:41 Hydralazine HCl (Apresoline) 25 mg Q8HR@0000,0800,1600 ORAL 07/22/18 08:00 08/21/18 07:59 07/24/18 15:52 Insulin Aspart (NovoLOG) BEFORE MEALS AND HS SUBQ 07/22/18 06:30 08/21/18 06:29 07/24/18 12:42 Piperacillin Sod/ Tazobactam Sod 3.375 gm/Sodium Chloride 110 ml @ 27.5 mls/hr EVERY 8 HOURS IVPB 07/22/18 15:30 07/29/18 15:29 07/24/18 14:18 Potassium Chloride (K-Dur) 20 meq DAILY ORAL 07/22/18 09:00 08/21/18 08:59 07/24/18 08:25 Spironolactone (Aldactone) 25 mg DAILY ORAL 07/22/18 09:00 08/21/18 08:59 07/24/18 08:25 Tamsulosin HCl (Flomax) 0.4 mg BID ORAL 07/23/18 18:00 08/21/18 08:59 07/24/18 08:25 Vancomycin HCl (Vanco rx to dose) 1 ea DAILY MISC 07/22/18 09:00 08/21/18 08:59 07/24/18 09:00 Zolpidem Tartrate (Ambien) 5 mg BEDTIME PRN ORAL Insomnia 07/22/18 01:45 07/29/18 01:44 07/23/18 22:19 Linda Suazo M.D. July 24, 2018 16:25
--- NOTE | 2018-07-24 16:54 | NUR ---
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 UTI VS: 103/62, P 76, T 97.6, RR 18, SpO2 100 RBC 4.24, Hgb 11.6, Hct 36.8, BUN 35, CR 2.2 IS:VANCOMYCIN HCI 275ml ZOSYN 110ml IVPB K-DUR 20meq ALDACTONE 25mg APRESOLINE 25mg NOVOLOG SUBQ MED/SURG STATUS
--- NOTE | 2018-07-24 17:28 | Nephrology Progress Note ---
Assessment/Plan Problem List: (1) Renal failure (ARF), acute on chronic (2) Diabetic nephropathy (3) UTI (urinary tract infection) (4) Cellulitis and abscess of lower extremity (5) Wound of right lower extremity (6) Hypothyroid Assessment Renal failure , Acute on chronic DM, Proteinuria HTN Cellulitis and abscess of lower extremity , Wound of right lower extremity UTI (urinary tract infection) Plan start synthroid Keep BP and BS in check antibiotics Urine studies Avoid Nephrotoxics 2D echo Per orders Subjective ROS Limited/Unobtainable: No Constitutional: Reports: malaise Objective Objective Last 24 Hour Vital Signs Date Time Temp Pulse Resp B/P (MAP) Pulse Ox O2 Delivery O2 Flow Rate FiO2 07/24/18 15:52 128/91 07/24/18 14:48 98.7 07/24/18 13:12 98.7 07/24/18 12:00 97.6 76 18 103/62 (76) 100 07/24/18 09:00 Room Air 07/24/18 08:26 124/80 07/24/18 08:00 98.7 82 20 124/80 (95) 98 07/24/18 04:00 99.0 79 18 100/67 (78) 98 07/24/18 00:41 133/76 07/24/18 00:00 98.9 76 18 133/76 (95) 99 07/23/18 21:00 Room Air 07/23/18 20:00 98.8 77 18 115/77 (90) 100 Intake and Output 07/23/18 07/24/18 18:59 06:59 Intake Total 1092.5 ml 110.0 ml Output Total 400 ml Balance 1092.5 ml -290.0 ml IV Total 192.5 ml 110.0 ml Other 900 ml Output Urine Total 400 ml Laboratory Tests 07/23/18 20:00: Urine Random Sodium 34 07/24/18 01:24: Urine Eosinophils None seen 07/24/18 04:50: White Blood Count 7.3, Red Blood Count 4.24L, Hemoglobin 11.6L, Hematocrit 36.8L , Mean Corpuscular Volume 87, Mean Corpuscular Hemoglobin 27.5, Mean Corpuscular Hemoglobin Concent 31.6L, Red Cell Distribution Width 18.0H, Platelet Count 143L, Mean Platelet Volume 8.8, Neutrophils (%) (Auto) 77.1H, Lymphocytes (%) (Auto) 10.3L, Monocytes (%) (Auto) 9.0, Eosinophils (%) (Auto) 2.8, Basophils (%) (Auto) 0.8, Sodium Level 138, Potassium Level 4.2, Chloride Level 104, Carbon Dioxide Level 26, Anion Gap 8, Blood Urea Nitrogen 35H, Creatinine 2.2H, Estimat Glomerular Filtration Rate 30.1, Glucose Level 64L, Hemoglobin A1c 6.6H, Uric Acid 5.9, Calcium Level 8.2L, Phosphorus Level 3.7, Magnesium Level 2.2, Iron Level 26L, Total Iron Binding Capacity 275, Percent Iron Saturation 9L, Unsaturated Iron Binding 249, Ferritin 73, Total Bilirubin 1.3H, Direct Bilirubin 0.3, Gamma Glutamyl Transpeptidase 193H, Aspartate Amino Transf (AST/SGOT) 13L, Alanine Aminotransferase (ALT/SGPT) 17, Alkaline Phosphatase 73, C-Reactive Protein, Quantitative 4.7H, Pro-B-Type Natriuretic Peptide 27074X, Total Protein 6.4, Albumin 2.6L, Globulin 3.8, Albumin/Globulin Ratio 0.7L, Triglycerides Level 56, Cholesterol Level 116, LDL Cholesterol 80, HDL Cholesterol 34L, Cholesterol/HDL Ratio 3.4, Vitamin B12 Level 210, Folate 10.1, Thyroid Stimulating Hormone (TSH) 10.994H, Random Vancomycin Level 8.3 Height (Feet): 6 Height (Inches): 2.00 Weight (Pounds): 250 General Appearance: no apparent distress Objective no change Michael Eaton MD July 24, 2018 17:28
[2018-07-24] MEDS ORDERED: Albumin Human 5% 500ml IV SCH (18:00)
--- NOTE | 2018-07-24 19:13 | NUR ---
HAND-OFF: Report given to EMERY Garcia.
--- NOTE | 2018-07-24 19:30 | NUR ---
NURSE NOTES: Received patient in no apparent distress. A&OX4. IV site patent and intact. Dressing on right leg, dry and intact. Remind patient collect urine sample. Bed in lowest position. Call light within reach. Will continue to monitor.
[2018-07-24 20:00] VITALS: BP 146/84
[2018-07-24] MEDS: Zolpidem 5mg tab ORAL PRN (20:31)
--- NOTE | 2018-07-24 21:00 | Progress Note ---
DATE: 07/24/2018 SUBJECTIVE: This is an elderly male, sitting in the bed, comfortable, and neck swelling is improving, and pain is also improving. The patient had an MRI done yesterday, waiting for MRI. PLAN: Continue IV antibiotics. Change Lasix to 40 mg IV q.12 hours. Continue rest of the treatment and discussed with the patient discharge plan to a [facility] facility. Mik Martinez M.D. DR: DEVON JOB#: [id number] CC:
[2018-07-25] VITALS (7 sets, daily range): BP systolic 126–137; BP diastolic 71–94
[2018-07-25] MEDS: HydrALAZINE 25mg tab ORAL SCH ×4 (01:01→23:06)
[2018-07-25] MEDS ORDERED: Piperacillin/Tazobactam 3.375 GM in NS 110 ML IVPB SCH (02:00)
[2018-07-25] MEDS: HYDROcodone/Acetamin 10/325 tab ORAL PRN ×3 (04:37→15:56)
[2018-07-25] MEDS: NovoLOG Insulin Flexpen SUBQ SCH ×4 (06:30→21:01)
--- NOTE | 2018-07-25 07:30 | NUR ---
HAND-OFF: Report given to Ifeanyi LAND.
--- NOTE | 2018-07-25 07:30 | NUR ---
HAND-OFF: Report given to EMERY GARAY. Addendum: 07/25/18 at 2014 by Ifeanyi Buenrostro RN ERROR
--- NOTE | 2018-07-25 07:31 | NUR ---
NURSE NOTES: Received pt from RN JOSEPH, Pt is alert and orient x4. pt is in RA , No SOB or acute respiratory distress noted. pt has intact iv access LFA 22G SL. all needs attended, bed is locked and is in the lowest position, call light within easy reach. will continue to monitor.
[2018-07-25] MEDS: Spironolactone 25mg tab ORAL SCH (08:36)
[2018-07-25] MEDS: Aspirin EC 81mg tab ORAL SCH (08:36)
[2018-07-25] MEDS: Tamsulosin 0.4mg cap ORAL SCH ×2 (08:37→17:16)
[2018-07-25] MEDS: Docusate 100mg cap ORAL SCH ×3 (08:37→17:16)
--- NOTE | 2018-07-25 12:03 | Nephrology Progress Note ---
Assessment/Plan Problem List: (1) Renal failure (ARF), acute on chronic (2) Diabetic nephropathy (3) UTI (urinary tract infection) (4) Cellulitis and abscess of lower extremity (5) Wound of right lower extremity (6) Hypothyroid Assessment Renal failure , Acute on chronic DM, Proteinuria HTN Cellulitis and abscess of lower extremity , Wound of right lower extremity UTI (urinary tract infection) Plan no labs today start synthroid Keep BP and BS in check antibiotics Urine studies Avoid Nephrotoxics 2D echo pending Per orders Subjective ROS Limited/Unobtainable: No Constitutional: Reports: malaise Objective Objective Last 24 Hour Vital Signs Date Time Temp Pulse Resp B/P (MAP) Pulse Ox O2 Delivery O2 Flow Rate FiO2 07/25/18 08:37 126/80 07/25/18 08:00 98.9 76 20 126/80 (95) 99 07/25/18 04:00 97.9 81 18 126/85 (99) 98 07/25/18 01:01 134/76 07/25/18 00:00 98.2 71 20 134/76 (95) 99 07/24/18 21:00 Room Air 07/24/18 20:00 98.1 68 20 146/84 (104) 94 07/24/18 19:14 98.6 07/24/18 16:00 98.6 78 20 128/91 (103) 99 07/24/18 15:52 128/91 07/24/18 13:12 98.7 Intake and Output 07/24/18 07/25/18 19:00 07:00 Intake Total 1596.666 ml 110.0 ml Output Total 1600 ml 400 ml Balance -3.334 ml -290.0 ml Intake Oral 1120 ml IV Total 476.666 ml 110.0 ml Output Urine Total 1600 ml 400 ml Current Medications Medications (Trade) Dose Ordered Sig/Aureliano Route PRN Reason Start Time Stop Time Status Last Admin Dose Admin Acetaminophen (Tylenol) 325 mg Q4H PRN ORAL Mild Pain (Pain Scale 1-3) 07/22/18 01:45 08/21/18 01:44 07/24/18 12:42 Acetaminophen/ Hydrocodone Bitart ([place] 10/325) 1 tab Q4H PRN ORAL For Pain 07/22/18 00:00 07/29/18 00:00 07/25/18 11:50 Aspirin (Ecotrin) 81 mg DAILY ORAL 07/22/18 09:00 08/21/18 08:59 07/25/18 08:36 Clonidine HCl (Catapres Tab) 0.1 mg Q4H PRN ORAL BP over 160 syst 07/23/18 16:00 08/22/18 15:59 Dextrose (Dextrose 50%) 25 ml Q30M PRN IV Hypoglycemia 07/22/18 06:15 08/21/18 06:14 Dextrose (Dextrose 50%) 50 ml Q30M PRN IV Hypoglycemia 07/22/18 06:15 08/21/18 06:14 Docusate Sodium (Colace) 100 mg TID ORAL 07/23/18 18:00 08/22/18 17:59 07/25/18 08:37 Hydralazine HCl (Apresoline) 25 mg Q8HR@0000,0800,1600 ORAL 07/22/18 08:00 08/21/18 07:59 07/25/18 08:37 Insulin Aspart (NovoLOG) BEFORE MEALS AND HS SUBQ 07/22/18 06:30 08/21/18 06:29 07/25/18 11:54 Levothyroxine Sodium (Synthroid) 50 mcg DAILY@0630 ORAL 07/25/18 06:30 08/24/18 06:29 07/25/18 06:07 Pantoprazole (Protonix) 40 mg DAILY ORAL 07/25/18 09:00 08/24/18 08:59 07/25/18 08:36 Piperacillin Sod/ Tazobactam Sod 3.375 gm/Sodium Chloride 110 ml @ 27.5 mls/hr Q12HR@0200,1400 IVPB 07/25/18 02:00 08/01/18 01:59 07/25/18 01:01 Spironolactone (Aldactone) 25 mg DAILY ORAL 07/22/18 09:00 08/21/18 08:59 07/25/18 08:36 Tamsulosin HCl (Flomax) 0.4 mg BID ORAL 07/23/18 18:00 08/21/18 08:59 07/25/18 08:37 Vancomycin HCl (Vanco rx to dose) 1 ea DAILY MISC 07/22/18 09:00 08/21/18 08:59 07/24/18 09:00 Zolpidem Tartrate (Ambien) 5 mg BEDTIME PRN ORAL Insomnia 07/22/18 01:45 07/29/18 01:44 07/24/18 20:31 Laboratory Tests 07/25/18 02:38: Urine Eosinophils None seen Height (Feet): 6 Height (Inches): 2.00 Weight (Pounds): 250 General Appearance: no apparent distress Cardiovascular: regular rhythm Respiratory/Chest: decreased breath sounds Abdomen: soft Objective no change Michael Eaton MD July 25, 2018 12:03
--- NOTE | 2018-07-25 12:58 | Surgery Progress Note ---
Surgery Progress Note Subjective Additional Comments no acute events. dressings saturated. exam much improved edema improved still wants more pain medication Objective Last 24 Hour Vital Signs Date Time Temp Pulse Resp B/P (MAP) Pulse Ox O2 Delivery O2 Flow Rate FiO2 07/25/18 12:00 98.1 83 19 132/94 (107) 99 07/25/18 08:37 126/80 07/25/18 08:00 98.9 76 20 126/80 (95) 99 07/25/18 04:00 97.9 81 18 126/85 (99) 98 07/25/18 01:01 134/76 07/25/18 00:00 98.2 71 20 134/76 (95) 99 07/24/18 21:00 Room Air 07/24/18 20:00 98.1 68 20 146/84 (104) 94 07/24/18 19:14 98.6 07/24/18 16:00 98.6 78 20 128/91 (103) 99 07/24/18 15:52 128/91 07/24/18 13:12 98.7 I&O Intake and Output 07/24/18 07/25/18 19:00 07:00 Intake Total 1596.666 ml 110.0 ml Output Total 1600 ml 400 ml Balance -3.334 ml -290.0 ml Intake Oral 1120 ml IV Total 476.666 ml 110.0 ml Output Urine Total 1600 ml 400 ml Dressing: saturated Wound: other Cardiovascular: RSR Respiratory: clear Abdomen: soft, flat, non-tender Extremities: edema, tenderness, no cyanosis Laboratory Tests Test 07/25/18 02:38 Urine Eosinophils None seen (NONE SEEN) Plan Problems: (1) CHF (congestive heart failure) (2) Renal insufficiency (3) UTI (urinary tract infection) (4) Sepsis (5) Cellulitis and abscess of lower extremity Assessment & Plan: Patient presented on admission with ulcerations ulcerations to Medial, Posterior and lateral aspect of Right lower extremity. Wounds are large but shallow with scattered yellow slough at base of wound. Irregular margins that are erythematous. Surrounding erythema with edema noted. Wounds exuding moderate amounts of serous exudate. Pt complains of pain when R leg elevated. Scars from Historical harvest graft noted to medial R tibia. Erythema noted to LLE . Xerosis skin LLE . Pt educated to importance of good hygiene practices .Instructed to wash and moisturize dry skin daily.Instructed to wash between toes but to avoid applying lotion between toes. Tx.Plan: Cleanse wounds R lower ext with Saline. Apply Silvasorb Gel to wounds. Apply Alginate. Cover with ABD pads. Wrap with Kerlix from Base of Toes to [place] Daily and PRN. Keep lower extremities elevated when possible to help with venous outflow Abx as per ID, input noted and appreciated Will follow with recs thank you (6) Wound of right lower extremity Ezekiel Macias July 25, 2018 12:58
--- NOTE | 2018-07-25 14:00 | NUR ---
NURSE NOTES: Dr REINA visited pt and saw the R leg, then treatment done as order. will continue to monitor.
--- NOTE | 2018-07-25 15:30 | Infectious Diseases Prog Note ---
Assessment/Plan Problems: (1) Cellulitis and abscess of lower extremity Assessment & Plan: with pseudomonas and serratia , continue vancomycin , and switch zosyn empirically to cefepime , vascular study to rule out PVD , no evidence of DVT on doppler (2) Sepsis Assessment & Plan: possible due to the above, continue wide spectrum antibiotics pending cultures (3) UTI (urinary tract infection) Assessment & Plan: already on zosyn pending culture (4) Renal insufficiency Assessment & Plan: continue hydration, monitor renal function (5) Wound of right lower extremity Assessment & Plan: with infection and blisters,due to pseudomonas and serratia , with no evidence of underlying osteomyelitis as per MRI of the right leg , continue wide spectrum antibiotics Subjective Constitutional: Reports: no symptoms HEENT: Reports: no symptoms Respiratory: Reports: no symptoms Breasts: Reports: no symptoms Cardiovascular: Reports: no symptoms Gastrointestinal/Abdominal: Reports: no symptoms Genitourinary: Reports: no symptoms Neurologic: Reports: no symptoms Psychiatric: Reports: no symptoms Skin: Reports: ulcer Endocrine: Reports: no symptoms Hematologic: Reports: no symptoms Musculoskeletal: Reports: other - right leg oozing from the wounds Allergies: Uncoded Allergies: MUSHROOMS (Allergy, Unknown, 07/21/18) Objective Vital Signs Last 24 Hour Vital Signs Date Time Temp Pulse Resp B/P (MAP) Pulse Ox O2 Delivery O2 Flow Rate FiO2 07/25/18 12:20 98.1 07/25/18 12:00 98.1 83 19 132/94 (107) 99 07/25/18 09:00 Room Air 07/25/18 08:37 126/80 07/25/18 08:00 98.9 76 20 126/80 (95) 99 07/25/18 04:00 97.9 81 18 126/85 (99) 98 07/25/18 01:01 134/76 07/25/18 00:00 98.2 71 20 134/76 (95) 99 07/24/18 21:00 Room Air 07/24/18 20:00 98.1 68 20 146/84 (104) 94 07/24/18 16:00 98.6 78 20 128/91 (103) 99 07/24/18 15:52 128/91 Height (Feet): 6 Height (Inches): 2.00 Weight (Pounds): 250 General Appearance: WD/WN, no acute distress HEENT: normocephalic, atraumatic, anicteric, mucous membranes moist, PERRL Respiratory/Chest: chest wall non-tender, normal breath sounds, no respiratory distress, no accessory muscle use, decreased breath sounds Cardiovascular: normal peripheral pulses, normal rate, regular rhythm, no gallop/murmur, no JVD Abdomen: normal bowel sounds, soft, non tender, no organomegaly, non distended , no mass, no scars Genitourinary: normal external genitalia Extremities: no cyanosis, no clubbing Skin: no rash, no lesions, no ulcers 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, alert, oriented x 3, responsive Lymphatic: no neck adenopathy, no groin adenopathy Musculoskeletal: normal muscle bulk, no effusion Microbiology Date/Time Source Procedure Growth Status 07/23/18 20:00 Urine,Clean Catch Urine Culture - Final NO GROWTH AFTER 48 HOURS Complete Laboratory Tests Test 07/25/18 02:38 Urine Eosinophils None seen (NONE SEEN) Current Medications Medications (Trade) Dose Ordered Sig/Aureliano Route PRN Reason Start Time Stop Time Status Last Admin Dose Admin Acetaminophen (Tylenol) 325 mg Q4H PRN ORAL Mild Pain (Pain Scale 1-3) 07/22/18 01:45 08/21/18 01:44 07/24/18 12:42 Acetaminophen/ Hydrocodone Bitart ([place] 10/325) 1 tab Q4H PRN ORAL For Pain 07/22/18 00:00 07/29/18 00:00 07/25/18 11:50 Aspirin (Ecotrin) 81 mg DAILY ORAL 07/22/18 09:00 08/21/18 08:59 07/25/18 08:36 Cefepime HCl 2 gm/ Dextrose 55 ml @ 110 mls/hr Q24H IVPB 07/25/18 14:00 08/01/18 13:59 Clonidine HCl (Catapres Tab) 0.1 mg Q4H PRN ORAL BP over 160 syst 07/23/18 16:00 08/22/18 15:59 Dextrose (Dextrose 50%) 25 ml Q30M PRN IV Hypoglycemia 07/22/18 06:15 08/21/18 06:14 Dextrose (Dextrose 50%) 50 ml Q30M PRN IV Hypoglycemia 07/22/18 06:15 08/21/18 06:14 Docusate Sodium (Colace) 100 mg TID ORAL 07/23/18 18:00 08/22/18 17:59 07/25/18 12:02 Hydralazine HCl (Apresoline) 25 mg Q8HR@0000,0800,1600 ORAL 07/22/18 08:00 08/21/18 07:59 07/25/18 08:37 Insulin Aspart (NovoLOG) BEFORE MEALS AND HS SUBQ 07/22/18 06:30 08/21/18 06:29 07/25/18 11:54 Levothyroxine Sodium (Synthroid) 50 mcg DAILY@0630 ORAL 07/25/18 06:30 08/24/18 06:29 07/25/18 06:07 Pantoprazole (Protonix) 40 mg DAILY ORAL 07/25/18 09:00 08/24/18 08:59 07/25/18 08:36 Spironolactone (Aldactone) 25 mg DAILY ORAL 07/22/18 09:00 08/21/18 08:59 07/25/18 08:36 Tamsulosin HCl (Flomax) 0.4 mg BID ORAL 07/23/18 18:00 08/21/18 08:59 07/25/18 08:37 Vancomycin HCl (Vanco rx to dose) 1 ea DAILY MISC 07/22/18 09:00 08/21/18 08:59 07/24/18 09:00 Zolpidem Tartrate (Ambien) 5 mg BEDTIME PRN ORAL Insomnia 07/22/18 01:45 07/29/18 01:44 07/24/18 20:31 Linda Suazo M.D. July 25, 2018 15:30
[2018-07-25] MEDS: Cefepime HCl 2 GM in D5W 55 ML IVPB SCH (16:00)
--- NOTE | 2018-07-25 17:00 | NUR ---
NURSE NOTES: pt is in pain Dr smith visited pt, all orders noted and carried out.called Dr DENNIS, left massage regarding consult. will continue to monitor.
--- NOTE | 2018-07-25 19:30 | NUR ---
HAND-OFF: Report given to EMERY GARAY.
--- NOTE | 2018-07-25 19:32 | NUR ---
NURSE NOTES: Received pt from RN Ifeanyi, Pt is alert and orient x4. pt is on RA , No SOB or acute respiratory distress noted. pt has intact iv access LFA 22G SL. all needs attended, bed is locked and is in the lowest position, call light within easy reach, bed alarm on. will continue to monitor.
[2018-07-26] VITALS: BP 117/73
--- NOTE | 2018-07-26 02:00 | Progress Note ---
DATE: 07/25/2018 SUBJECTIVE: This is a 68-year-old male complaining of pain on the right knee, unable to walk. OBJECTIVE: VITAL SIGNS: As he stated earlier, blood pressure 135/94, pulse 76, no fever. CHEST: Bilaterally clear. CARDIOVASCULAR: Regular rhythm. ABDOMEN: Soft. EXTREMITIES: Both legs have erythema, but ulcer on the right leg is improving. LABORATORY DATA: His MRI is negative for osteomyelitis. ASSESSMENT AND PLAN: 1. Intractable pain. We will add Neurontin. Continue current [place] every 4 hours. Consider pain management. 2. The patient has cellulitis. Continue IV antibiotics. 3. Leg ulcer. Continue wound care. 4. Diabetes. We will add diabetic diet. Continue current treatment. PT and OT discussed with the charge nurse. Mik Martinez M.D. DR: JOAN JOB#: [id number] CC:
[2018-07-26 04:00] VITALS: BP 121/70
[2018-07-26] MEDS: NovoLOG Insulin Flexpen SUBQ SCH ×4 (06:15→21:33)
[2018-07-26 07:25] LABS: BASOPHILS % (AUTO) 1.1 % (0.0-2.0); EOSINOPHILS % (AUTO) 2.7 % (0.0-3.0); HEMATOCRIT 36.2 % (42.0-52.0); HEMOGLOBIN 11.7 G/DL (14.2-18.0); LYMPHOCYTES % (AUTO) 5.2 % (20.0-45.0); MEAN CORPUSCULAR VOLUME 87 FL (80-99); MONOCYTES % (AUTO) 8.6 % (1.0-10.0); NEUTROPHILS % (AUTO) 82.5 % (45.0-75.0); PLATELET COUNT 158 K/UL (150-450); RED BLOOD COUNT 4.17 M/UL (4.70-6.10); RED CELL DISTRIBUTION WIDTH 17.9 % (11.6-14.8); WHITE BLOOD COUNT 8.4 K/UL (4.8-10.8)
[2018-07-26 07:27] LABS: ALANINE AMINOTRANSFERASE 11 U/L (12-78); ALBUMIN 2.7 G/DL (3.4-5.0); ALBUMIN/GLOBULIN RATIO 0.7 (1.0-2.7); ALKALINE PHOSPHATASE 74 U/L (46-116); ANION GAP 9 mmol/L (5-15); ASPARTATE AMINO TRANSFERASE 9 U/L (15-37); BILIRUBIN,TOTAL 1.2 MG/DL (0.2-1.0); BLOOD UREA NITROGEN 31 mg/dL (7-18); CALCIUM 8.1 MG/DL (8.5-10.1); CARBON DIOXIDE 24 MMOL/L (21-32); CHLORIDE 107 MMOL/L (98-107); POTASSIUM 4.7 MMOL/L (3.5-5.1); SODIUM 140 MMOL/L (136-145)
--- NOTE | 2018-07-26 07:35 | NUR ---
NURSE NOTES: Received pt from EMERY GARAY, Pt is alert and orient x4. pt is in RA , No SOB or acute respiratory distress noted. pt has intact iv access LAC 22G SL. RN called Dr DENNIS left massage regarding consultation. all needs attended, bed is locked and is in the lowest position, call light within easy reach. will continue to monitor.
[2018-07-26 07:39] LABS: BILIRUBIN,DIRECT 0.3 MG/DL (0.0-0.3)
--- NOTE | 2018-07-26 07:39 | NUR ---
HAND-OFF: Report given to EMERY Suggs.
[2018-07-26 08:00] VITALS: BP 144/75
[2018-07-26 08:11] LABS: PHOSPHORUS 3.1 MG/DL (2.5-4.9)
[2018-07-26] MEDS: HydrALAZINE 25mg tab ORAL SCH ×2 (08:11→16:54)
[2018-07-26] MEDS: Aspirin EC 81mg tab ORAL SCH (08:11)
[2018-07-26] MEDS: Tamsulosin 0.4mg cap ORAL SCH ×2 (08:11→16:58)
[2018-07-26] MEDS: Docusate 100mg cap ORAL SCH ×3 (08:12→16:58)
[2018-07-26] MEDS: Spironolactone 25mg tab ORAL SCH (08:12)
[2018-07-26] MEDS: HYDROcodone/Acetamin 10/325 tab ORAL PRN ×4 (08:12→21:50)
[2018-07-26] MEDS ORDERED: Meloxicam 15 MG TAB ORAL SCH (09:00)
[2018-07-26] MEDS ORDERED: Vancomycin 1.25gm Premix IVPB SCH (10:00)
--- NOTE | 2018-07-26 10:48 | Consultation ---
History of Present Illness General Date patient seen: July 26, 2018 Chief Complaint: Present Illness Allergies: Uncoded Allergies: MUSHROOMS (Allergy, Unknown, 07/21/18) Medication History Scheduled Aspirin* (Aspir 81*), 81 MG ORAL DAILY, (Reported) Spironolactone (Aldactone), 25 MG ORAL DAILY, (Reported) Tamsulosin HCl (Flomax), 0.4 MG ORAL DAILY, (Reported) Valsartan (Diovan), 1 TAB ORAL DAILY, (Reported) Scheduled PRN Acetaminophen* (Acetaminophen 325MG Tablet*), 325 MG ORAL Q4H PRN for Mild Pain (Pain Scale 1-3), (Reported) Zolpidem Tartrate* (Zolpidem Tartrate*), 10 MG ORAL BEDTIME PRN for Insomnia, ( Reported) Miscellaneous Medications Hydralazine HCl (Hydralazine HCl), 25 MG PO, (Reported) Insulin Aspart (Novolog), (Reported) Insulin Detemir (Levemir Flextouch), 100 UNIT SQ, (Reported) Terazosin Hcl (Terazosin Hcl), 2 MG PO, (Reported) Patient History Healthcare decision maker N Resuscitation status Full Code Advanced Directive on File No Physical Exam Last 24 Hour Vital Signs Date Time Temp Pulse Resp B/P (MAP) Pulse Ox O2 Delivery O2 Flow Rate FiO2 07/26/18 08:42 97.5 07/26/18 08:11 144/75 07/26/18 08:00 97.5 65 18 144/75 (98) 97 07/26/18 04:00 98.3 74 20 121/70 (87) 95 07/26/18 00:00 98.5 83 16 117/73 (88) 94 07/25/18 23:06 137/71 07/25/18 21:00 Room Air 07/25/18 20:00 98.5 79 18 137/71 (93) 97 07/25/18 16:03 135/94 07/25/18 16:00 97.7 76 19 135/94 (108) 100 07/25/18 12:00 98.1 83 19 132/94 (107) 99 Intake and Output 07/25/18 07/26/18 19:00 07:00 Intake Total 55 ml Output Total 1000 ml Balance 55 ml -1000 ml IV Total 55 ml Output Urine Total 1000 ml Laboratory Tests Test 07/26/18 05:20 07/26/18 06:00 White Blood Count 8.4 K/UL (4.8-10.8) Red Blood Count 4.17 M/UL (4.70-6.10) L Hemoglobin 11.7 G/DL (14.2-18.0) L Hematocrit 36.2 % (42.0-52.0) L Mean Corpuscular Volume 87 FL (80-99) Mean Corpuscular Hemoglobin 28.1 PG (27.0-31.0) Mean Corpuscular Hemoglobin Concent 32.4 G/DL (32.0-36.0) Red Cell Distribution Width 17.9 % (11.6-14.8) H Platelet Count 158 K/UL (150-450) Mean Platelet Volume 8.3 FL (6.5-10.1) Neutrophils (%) (Auto) 82.5 % (45.0-75.0) H Lymphocytes (%) (Auto) 5.2 % (20.0-45.0) L Monocytes (%) (Auto) 8.6 % (1.0-10.0) Eosinophils (%) (Auto) 2.7 % (0.0-3.0) Basophils (%) (Auto) 1.1 % (0.0-2.0) Sodium Level 140 MMOL/L (136-145) Potassium Level 4.7 MMOL/L (3.5-5.1) Chloride Level 107 MMOL/L (98-107) Carbon Dioxide Level 24 MMOL/L (21-32) Anion Gap 9 mmol/L (5-15) Blood Urea Nitrogen 31 mg/dL (7-18) H Creatinine 2.0 MG/DL (0.55-1.30) H Estimat Glomerular Filtration Rate 33.6 mL/min (>60) Glucose Level 90 MG/DL (74-106) Uric Acid 5.7 MG/DL (2.6-7.2) Calcium Level 8.1 MG/DL (8.5-10.1) L Phosphorus Level 3.1 MG/DL (2.5-4.9) Magnesium Level 2.2 MG/DL (1.8-2.4) Total Bilirubin 1.2 MG/DL (0.2-1.0) H Direct Bilirubin 0.3 MG/DL (0.0-0.3) Aspartate Amino Transf (AST/SGOT) 9 U/L (15-37) L Alanine Aminotransferase (ALT/SGPT) 11 U/L (12-78) L Alkaline Phosphatase 74 U/L (46-116) Total Protein 6.4 G/DL (6.4-8.2) Albumin 2.7 G/DL (3.4-5.0) L Globulin 3.7 g/dL Albumin/Globulin Ratio 0.7 (1.0-2.7) L Random Vancomycin Level 8.5 ug/mL Urine Eosinophils None seen (NONE SEEN) Height (Feet): 6 Height (Inches): 2.00 Weight (Pounds): 250 Medications Current Medications Medications (Trade) Dose Ordered Sig/Aureliano Route PRN Reason Start Time Stop Time Status Last Admin Dose Admin Acetaminophen (Tylenol) 325 mg Q4H PRN ORAL Mild Pain (Pain Scale 1-3) 07/22/18 01:45 08/21/18 01:44 07/24/18 12:42 Acetaminophen/ Hydrocodone Bitart ([place] 10/325) 1 tab Q4H PRN ORAL For Pain 07/22/18 00:00 07/29/18 00:00 07/26/18 08:12 Aspirin (Ecotrin) 81 mg DAILY ORAL 07/22/18 09:00 08/21/18 08:59 07/26/18 08:11 Cefepime HCl 2 gm/ Dextrose 55 ml @ 110 mls/hr Q24H IVPB 07/25/18 14:00 08/01/18 13:59 07/25/18 16:00 Clonidine HCl (Catapres Tab) 0.1 mg Q4H PRN ORAL BP over 160 syst 07/23/18 16:00 08/22/18 15:59 Dextrose (Dextrose 50%) 25 ml Q30M PRN IV Hypoglycemia 07/22/18 06:15 08/21/18 06:14 Dextrose (Dextrose 50%) 50 ml Q30M PRN IV Hypoglycemia 07/22/18 06:15 08/21/18 06:14 Docusate Sodium (Colace) 100 mg TID ORAL 07/23/18 18:00 08/22/18 17:59 07/26/18 08:12 Gabapentin (Neurontin) 600 mg BID ORAL 07/25/18 18:00 08/24/18 17:59 07/26/18 08:12 Hydralazine HCl (Apresoline) 25 mg Q8HR@0000,0800,1600 ORAL 07/22/18 08:00 08/21/18 07:59 07/26/18 08:11 Insulin Aspart (NovoLOG) BEFORE MEALS AND HS SUBQ 07/22/18 06:30 08/21/18 06:29 07/25/18 21:01 Levothyroxine Sodium (Synthroid) 50 mcg DAILY@0630 ORAL 07/25/18 06:30 08/24/18 06:29 07/26/18 05:27 Pantoprazole (Protonix) 40 mg DAILY ORAL 07/25/18 09:00 08/24/18 08:59 07/26/18 08:11 Spironolactone (Aldactone) 25 mg DAILY ORAL 07/22/18 09:00 08/21/18 08:59 07/26/18 08:12 Tamsulosin HCl (Flomax) 0.4 mg BID ORAL 07/23/18 18:00 08/21/18 08:59 07/26/18 08:11 Vancomycin HCl (Vanco rx to dose) 1 ea DAILY MISC 07/22/18 09:00 08/21/18 08:59 07/26/18 09:00 Vancomycin HCl/ Dextrose 275 ml @ 183.333 mls/hr ONCE IVPB 07/26/18 10:00 07/26/18 12:00 07/26/18 10:12 Zolpidem Tartrate (Ambien) 5 mg BEDTIME PRN ORAL Insomnia 07/22/18 01:45 07/29/18 01:44 07/24/18 20:31 Assessment/Plan Assessment/Plan: (1) Right LE pain (2) Right LE Ulcer (3) Right LE Abscess (4) Neuropathic pain Seen dictated Michael Anaya July 26, 2018 10:48
[2018-07-26 12:00] VITALS: BP 131/90
[2018-07-26] MEDS: Cefepime HCl 2 GM in D5W 55 ML IVPB SCH (13:05)
--- NOTE | 2018-07-26 13:35 | Surgery Progress Note ---
Surgery Progress Note Subjective Additional Comments no acute events. stable. comfortable. Objective Last 24 Hour Vital Signs Date Time Temp Pulse Resp B/P (MAP) Pulse Ox O2 Delivery O2 Flow Rate FiO2 07/26/18 12:48 97.5 07/26/18 12:00 98.0 72 19 131/90 (104) 99 07/26/18 09:00 Room Air 07/26/18 08:11 144/75 07/26/18 08:00 97.5 65 18 144/75 (98) 97 07/26/18 04:00 98.3 74 20 121/70 (87) 95 07/26/18 00:00 98.5 83 16 117/73 (88) 94 07/25/18 23:06 137/71 07/25/18 21:00 Room Air 07/25/18 20:00 98.5 79 18 137/71 (93) 97 07/25/18 16:03 135/94 07/25/18 16:00 97.7 76 19 135/94 (108) 100 I&O Intake and Output 07/25/18 07/26/18 19:00 07:00 Intake Total 55 ml Output Total 1000 ml Balance 55 ml -1000 ml IV Total 55 ml Output Urine Total 1000 ml Dressing: saturated Wound: other Drains: none Cardiovascular: RSR Respiratory: clear Abdomen: soft, flat, non-tender, present bowel sounds, non-distended Extremities: edema, no tenderness, no cyanosis Laboratory Tests Test 07/26/18 05:20 07/26/18 06:00 White Blood Count 8.4 K/UL (4.8-10.8) Red Blood Count 4.17 M/UL (4.70-6.10) L Hemoglobin 11.7 G/DL (14.2-18.0) L Hematocrit 36.2 % (42.0-52.0) L Mean Corpuscular Volume 87 FL (80-99) Mean Corpuscular Hemoglobin 28.1 PG (27.0-31.0) Mean Corpuscular Hemoglobin Concent 32.4 G/DL (32.0-36.0) Red Cell Distribution Width 17.9 % (11.6-14.8) H Platelet Count 158 K/UL (150-450) Mean Platelet Volume 8.3 FL (6.5-10.1) Neutrophils (%) (Auto) 82.5 % (45.0-75.0) H Lymphocytes (%) (Auto) 5.2 % (20.0-45.0) L Monocytes (%) (Auto) 8.6 % (1.0-10.0) Eosinophils (%) (Auto) 2.7 % (0.0-3.0) Basophils (%) (Auto) 1.1 % (0.0-2.0) Sodium Level 140 MMOL/L (136-145) Potassium Level 4.7 MMOL/L (3.5-5.1) Chloride Level 107 MMOL/L (98-107) Carbon Dioxide Level 24 MMOL/L (21-32) Anion Gap 9 mmol/L (5-15) Blood Urea Nitrogen 31 mg/dL (7-18) H Creatinine 2.0 MG/DL (0.55-1.30) H Estimat Glomerular Filtration Rate 33.6 mL/min (>60) Glucose Level 90 MG/DL (74-106) Uric Acid 5.7 MG/DL (2.6-7.2) Calcium Level 8.1 MG/DL (8.5-10.1) L Phosphorus Level 3.1 MG/DL (2.5-4.9) Magnesium Level 2.2 MG/DL (1.8-2.4) Total Bilirubin 1.2 MG/DL (0.2-1.0) H Direct Bilirubin 0.3 MG/DL (0.0-0.3) Aspartate Amino Transf (AST/SGOT) 9 U/L (15-37) L Alanine Aminotransferase (ALT/SGPT) 11 U/L (12-78) L Alkaline Phosphatase 74 U/L (46-116) Total Protein 6.4 G/DL (6.4-8.2) Albumin 2.7 G/DL (3.4-5.0) L Globulin 3.7 g/dL Albumin/Globulin Ratio 0.7 (1.0-2.7) L Random Vancomycin Level 8.5 ug/mL Urine Eosinophils None seen (NONE SEEN) Plan Problems: (1) CHF (congestive heart failure) (2) Renal insufficiency (3) UTI (urinary tract infection) (4) Sepsis (5) Cellulitis and abscess of lower extremity Assessment & Plan: Patient presented on admission with ulcerations ulcerations to Medial, Posterior and lateral aspect of Right lower extremity. Wounds are large but shallow with scattered yellow slough at base of wound. Irregular margins that are erythematous. Surrounding erythema with edema noted. Wounds exuding moderate amounts of serous exudate. Pt complains of pain when R leg elevated. Scars from Historical harvest graft noted to medial R tibia. Erythema noted to LLE . Xerosis skin LLE . Pt educated to importance of good hygiene practices .Instructed to wash and moisturize dry skin daily.Instructed to wash between toes but to avoid applying lotion between toes. Tx.Plan: Cleanse wounds R lower ext with Saline. Apply Silvasorb Gel to wounds. Apply Alginate. Cover with ABD pads. Wrap with Kerlix from Base of Toes to [place] Daily and PRN. Keep lower extremities elevated when possible to help with venous outflow Abx as per ID, input noted and appreciated Will follow with recs thank you (6) Wound of right lower extremity Ezekiel Macias July 26, 2018 13:35
--- NOTE | 2018-07-26 15:53 | Infectious Diseases Prog Note ---
Assessment/Plan Problems: (1) Cellulitis and abscess of lower extremity Assessment & Plan: with pseudomonas and serratia , continue vancomycin , and cefepime for two weeks , vascular study to rule out PVD , no evidence of DVT on doppler (2) Sepsis Assessment & Plan: possible due to the above, continue wide spectrum antibiotics pending cultures (3) UTI (urinary tract infection) Assessment & Plan: already on zosyn pending culture (4) Renal insufficiency Assessment & Plan: continue hydration, monitor renal function (5) Wound of right lower extremity Assessment & Plan: with infection and blisters,due to pseudomonas and serratia , with no evidence of underlying osteomyelitis as per MRI of the right leg , continue wide spectrum antibiotics with vancomycin and cefepime for two weeks Subjective Constitutional: Reports: no symptoms HEENT: Reports: no symptoms Respiratory: Reports: no symptoms Breasts: Reports: no symptoms Cardiovascular: Reports: no symptoms Gastrointestinal/Abdominal: Reports: no symptoms Genitourinary: Reports: no symptoms Neurologic: Reports: no symptoms Psychiatric: Reports: no symptoms Skin: Reports: ulcer Endocrine: Reports: no symptoms Hematologic: Reports: no symptoms Musculoskeletal: Reports: pain, swelling Allergies: Uncoded Allergies: MUSHROOMS (Allergy, Unknown, 07/21/18) Subjective feels better over all wth less edema and redness in the right leg, still draining serosanguineous fluids Objective Vital Signs Last 24 Hour Vital Signs Date Time Temp Pulse Resp B/P (MAP) Pulse Ox O2 Delivery O2 Flow Rate FiO2 07/26/18 12:48 97.5 07/26/18 12:00 98.0 72 19 131/90 (104) 99 07/26/18 09:00 Room Air 07/26/18 08:11 144/75 07/26/18 08:00 97.5 65 18 144/75 (98) 97 07/26/18 04:00 98.3 74 20 121/70 (87) 95 07/26/18 00:00 98.5 83 16 117/73 (88) 94 07/25/18 23:06 137/71 07/25/18 21:00 Room Air 07/25/18 20:00 98.5 79 18 137/71 (93) 97 07/25/18 16:03 135/94 07/25/18 16:00 97.7 76 19 135/94 (108) 100 Height (Feet): 6 Height (Inches): 2.00 Weight (Pounds): 250 General Appearance: WD/WN, no acute distress HEENT: normocephalic, atraumatic, anicteric, mucous membranes moist, PERRL, EOMI, pharynx normal, supple, no JVD Respiratory/Chest: chest wall non-tender, normal breath sounds, no respiratory distress, no accessory muscle use Cardiovascular: normal peripheral pulses, normal rate, regular rhythm, no gallop/murmur, no JVD Abdomen: normal bowel sounds, soft, non tender, no organomegaly, non distended , no mass, no scars Genitourinary: normal external genitalia Extremities: no cyanosis, no clubbing Skin: no rash, no lesions, no ulcers 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, alert, oriented x 3, responsive Lymphatic: no neck adenopathy, no groin adenopathy Musculoskeletal: normal muscle bulk, no effusion Microbiology Date/Time Source Procedure Growth Status 07/23/18 20:00 Urine,Clean Catch Urine Culture - Final NO GROWTH AFTER 48 HOURS Complete Laboratory Tests Test 07/26/18 05:20 07/26/18 06:00 White Blood Count 8.4 K/UL (4.8-10.8) Red Blood Count 4.17 M/UL (4.70-6.10) L Hemoglobin 11.7 G/DL (14.2-18.0) L Hematocrit 36.2 % (42.0-52.0) L Mean Corpuscular Volume 87 FL (80-99) Mean Corpuscular Hemoglobin 28.1 PG (27.0-31.0) Mean Corpuscular Hemoglobin Concent 32.4 G/DL (32.0-36.0) Red Cell Distribution Width 17.9 % (11.6-14.8) H Platelet Count 158 K/UL (150-450) Mean Platelet Volume 8.3 FL (6.5-10.1) Neutrophils (%) (Auto) 82.5 % (45.0-75.0) H Lymphocytes (%) (Auto) 5.2 % (20.0-45.0) L Monocytes (%) (Auto) 8.6 % (1.0-10.0) Eosinophils (%) (Auto) 2.7 % (0.0-3.0) Basophils (%) (Auto) 1.1 % (0.0-2.0) Sodium Level 140 MMOL/L (136-145) Potassium Level 4.7 MMOL/L (3.5-5.1) Chloride Level 107 MMOL/L (98-107) Carbon Dioxide Level 24 MMOL/L (21-32) Anion Gap 9 mmol/L (5-15) Blood Urea Nitrogen 31 mg/dL (7-18) H Creatinine 2.0 MG/DL (0.55-1.30) H Estimat Glomerular Filtration Rate 33.6 mL/min (>60) Glucose Level 90 MG/DL (74-106) Uric Acid 5.7 MG/DL (2.6-7.2) Calcium Level 8.1 MG/DL (8.5-10.1) L Phosphorus Level 3.1 MG/DL (2.5-4.9) Magnesium Level 2.2 MG/DL (1.8-2.4) Total Bilirubin 1.2 MG/DL (0.2-1.0) H Direct Bilirubin 0.3 MG/DL (0.0-0.3) Aspartate Amino Transf (AST/SGOT) 9 U/L (15-37) L Alanine Aminotransferase (ALT/SGPT) 11 U/L (12-78) L Alkaline Phosphatase 74 U/L (46-116) Total Protein 6.4 G/DL (6.4-8.2) Albumin 2.7 G/DL (3.4-5.0) L Globulin 3.7 g/dL Albumin/Globulin Ratio 0.7 (1.0-2.7) L Random Vancomycin Level 8.5 ug/mL Urine Eosinophils None seen (NONE SEEN) Current Medications Medications (Trade) Dose Ordered Sig/Aureliano Route PRN Reason Start Time Stop Time Status Last Admin Dose Admin Acetaminophen (Tylenol) 325 mg Q4H PRN ORAL Mild Pain (Pain Scale 1-3) 07/22/18 01:45 08/21/18 01:44 07/24/18 12:42 Acetaminophen/ Hydrocodone Bitart ([place] 10/325) 1 tab Q4H PRN ORAL For Pain 07/22/18 00:00 07/29/18 00:00 07/26/18 12:18 Aspirin (Ecotrin) 81 mg DAILY ORAL 07/22/18 09:00 08/21/18 08:59 07/26/18 08:11 Cefepime HCl 2 gm/ Dextrose 55 ml @ 110 mls/hr Q24H IVPB 07/25/18 14:00 08/01/18 13:59 07/26/18 13:05 Clonidine HCl (Catapres Tab) 0.1 mg Q4H PRN ORAL BP over 160 syst 07/23/18 16:00 08/22/18 15:59 Dextrose (Dextrose 50%) 25 ml Q30M PRN IV Hypoglycemia 07/22/18 06:15 08/21/18 06:14 Dextrose (Dextrose 50%) 50 ml Q30M PRN IV Hypoglycemia 07/22/18 06:15 08/21/18 06:14 Docusate Sodium (Colace) 100 mg TID ORAL 07/23/18 18:00 08/22/18 17:59 07/26/18 12:18 Gabapentin (Neurontin) 600 mg BID ORAL 07/25/18 18:00 08/24/18 17:59 07/26/18 08:12 Hydralazine HCl (Apresoline) 25 mg Q8HR@0000,0800,1600 ORAL 07/22/18 08:00 08/21/18 07:59 07/26/18 08:11 Insulin Aspart (NovoLOG) BEFORE MEALS AND HS SUBQ 07/22/18 06:30 08/21/18 06:29 07/26/18 12:20 Levothyroxine Sodium (Synthroid) 50 mcg DAILY@0630 ORAL 07/25/18 06:30 08/24/18 06:29 07/26/18 05:27 Pantoprazole (Protonix) 40 mg DAILY ORAL 07/25/18 09:00 08/24/18 08:59 07/26/18 08:11 Spironolactone (Aldactone) 25 mg DAILY ORAL 07/22/18 09:00 08/21/18 08:59 07/26/18 08:12 Tamsulosin HCl (Flomax) 0.4 mg BID ORAL 07/23/18 18:00 08/21/18 08:59 07/26/18 08:11 Vancomycin HCl (Vanco rx to dose) 1 ea DAILY MISC 07/22/18 09:00 08/21/18 08:59 07/26/18 09:00 Zolpidem Tartrate (Ambien) 5 mg BEDTIME PRN ORAL Insomnia 07/22/18 01:45 07/29/18 01:44 07/24/18 20:31 Linda Suazo M.D. July 26, 2018 15:53
[2018-07-26 16:00] VITALS: BP 130/64
--- NOTE | 2018-07-26 16:45 | Consultation ---
DATE OF CONSULTATION: 07/26/2018 PAIN MANAGEMENT CONSULTATION REFERRING PHYSICIAN: Mik Martinez M.D. CONSULTING PHYSICIAN: Joel Jara M.D. PHYSICIAN INSTALLMENT DEALER: Amanda Vargas CHIEF COMPLAINT: Right lower extremity pain. HISTORY OF PRESENT ILLNESS: This is a 68-year-old male, who is being seen on the med/surg floor of [facility] for initial pain management consultation. The patient was admitted under the care of Dr. Martinez from nursing facility with complaints of right lower extremity pain for the past five weeks. It is a constant acute pain, rating at 10/10 at its worst, describing the pain as sharp burning pain, increasing with touch and movement and reduced with medication. At this time, found to have ulcers, abscess, and cellulitis of the right lower extremity and after having bypass for heart issues and was started on [place] 10/325 mg every four hours as needed for pain with minimal pain relief. However, then was started on Neurontin 600 mg b.i.d., which the patient reports adequately has been tolerating his pain. Discussed the patient's care with the nurse at the bedside. PAST MEDICAL HISTORY: Diabetes mellitus, hypertension, coronary artery disease, and heart failure. PAST SURGICAL HISTORY: Coronary artery bypass graft. SOCIAL HISTORY: Denies smoking tobacco, drinking alcohol, or IV drug abuse. ALLERGIES: No known drug allergies. MEDICATIONS: Aspirin, spironolactone, Flomax, [place], Ambien, hydralazine, NovoLog, Levemir, and terazosin. REVIEW OF SYSTEMS: Denies rash, fever, chills, sweating, dizziness, drowsiness, blurred vision, sore throat, or change in weight. No shortness of breath or chest pain. No nausea, vomiting, or blood in the stool or urine. No bowel or bladder incontinence. No dysuria. C/O right lower extremity pain. PHYSICAL EXAMINATION: GENERAL: Alert, awake, and oriented. VITAL SIGNS: Blood pressure 144/75, heart 65, oxygen saturation 92%, respiratory rate is 18, temperature is 97.5 degrees Fahrenheit. HEENT: PERRLA. NECK: Range of motion is full in all directions. No tenderness to paracervical muscles. No adenopathy. LUNGS: Decreased breath sounds bilaterally. HEART: S1 and S2 regular. ABDOMEN: Obese. BACK: Range of motion is decreased in flexion and extension. EXTREMITIES: Upper and lower extremity range of motion is decreased. cyanosis on to the right lower extremity. Bandages applied. Tenderness to palpation. The skin discoloration noted. ASSESSMENT AND PLAN: This is a 68-year-old male with right lower extremity pain, abscess, and ulcer, neuropathic pain. The patient will be continued on [place] and Neurontin at this time. Discussed with the nurse the patient's pain is not controlled. We assessed the patient's condition and treatment. The patient was discussed with Dr. Jara and concurred. We will follow the patient. Thank you very much for the courtesy of this consultation. Joel Jara M.D. OSWALD Vargas DR: Marii JOB#: [id number] CC: AVE
--- NOTE | 2018-07-26 16:56 | Nephrology Progress Note ---
Assessment/Plan Problem List: (1) Renal failure (ARF), acute on chronic (2) Diabetic nephropathy (3) UTI (urinary tract infection) (4) Cellulitis and abscess of lower extremity (5) Wound of right lower extremity (6) Hypothyroid (7) Cardiomyopathy Assessment Renal failure , Acute on chronic DM, Proteinuria HTN Cellulitis and abscess of lower extremity , Wound of right lower extremity UTI (urinary tract infection) Plan start synthroid, isordil, zestril Keep BP and BS in check antibiotics Urine studies Avoid Nephrotoxics 2D echo 15% EjFx Per orders Subjective ROS Limited/Unobtainable: No Objective Objective Last 24 Hour Vital Signs Date Time Temp Pulse Resp B/P (MAP) Pulse Ox O2 Delivery O2 Flow Rate FiO2 07/26/18 16:00 98.5 79 17 130/64 (86) 94 07/26/18 12:48 97.5 07/26/18 12:00 98.0 72 19 131/90 (104) 99 07/26/18 09:00 Room Air 07/26/18 08:11 144/75 07/26/18 08:00 97.5 65 18 144/75 (98) 97 07/26/18 04:00 98.3 74 20 121/70 (87) 95 07/26/18 00:00 98.5 83 16 117/73 (88) 94 07/25/18 23:06 137/71 07/25/18 21:00 Room Air 07/25/18 20:00 98.5 79 18 137/71 (93) 97 Intake and Output 07/25/18 07/26/18 19:00 07:00 Intake Total 55 ml Output Total 1000 ml Balance 55 ml -1000 ml IV Total 55 ml Output Urine Total 1000 ml Laboratory Tests 07/26/18 05:20: White Blood Count 8.4, Red Blood Count 4.17L, Hemoglobin 11.7L, Hematocrit 36.2L , Mean Corpuscular Volume 87, Mean Corpuscular Hemoglobin 28.1, Mean Corpuscular Hemoglobin Concent 32.4, Red Cell Distribution Width 17.9H, Platelet Count 158, Mean Platelet Volume 8.3, Neutrophils (%) (Auto) 82.5H, Lymphocytes (%) (Auto) 5.2L, Monocytes (%) (Auto) 8.6, Eosinophils (%) (Auto) 2.7, Basophils (%) (Auto) 1.1, Sodium Level 140, Potassium Level 4.7, Chloride Level 107, Carbon Dioxide Level 24, Anion Gap 9, Blood Urea Nitrogen 31H, Creatinine 2.0H, Estimat Glomerular Filtration Rate 33.6, Glucose Level 90, Uric Acid 5.7, Calcium Level 8.1L, Phosphorus Level 3.1, Magnesium Level 2.2, Total Bilirubin 1.2H, Direct Bilirubin 0.3, Aspartate Amino Transf (AST/SGOT) 9L , Alanine Aminotransferase (ALT/SGPT) 11L, Alkaline Phosphatase 74, Total Protein 6.4, Albumin 2.7L, Globulin 3.7, Albumin/Globulin Ratio 0.7L, Random Vancomycin Level 8.5 07/26/18 06:00: Urine Eosinophils None seen Height (Feet): 6 Height (Inches): 2.00 Weight (Pounds): 250 General Appearance: no apparent distress Cardiovascular: normal rate Respiratory/Chest: lungs clear Abdomen: soft Objective no change Michael Eaton MD July 26, 2018 16:56
[2018-07-26] MEDS ORDERED: Lisinopril 2.5mg tab ORAL SCH (18:00)
--- NOTE | 2018-07-26 19:00 | Progress Note ---
DATE: 07/26/2018 SUBJECTIVE: This is an elderly male came with nonhealing ulcer and cellulitis in bilateral legs. The patient is currently sitting in the bed comfortable. He is improving. OBJECTIVE: VITAL SIGNS: Stable. CHEST: Bilaterally clear. CARDIOVASCULAR: Regular rhythm. ABDOMEN: Soft. EXTREMITIES: Mild edema in both legs. The swelling is much better and ulcer is also improving. ASSESSMENT: 1. Ulcer on the right leg. 2. Bilateral leg cellulitis. 3. Bilateral leg edema. 4. Congestive heart failure. 5. Diabetes mellitus. 6. Hypertension. PLAN: We will currently decrease the Lasix. Continue antibiotics, bronchodilator treatments, supportive care. Discharge plan per Infectious Diseases. Mik Martinez M.D. DR: Lissa JOB#: [id number] CC:
--- NOTE | 2018-07-26 19:33 | NUR ---
HAND-OFF: Report given to EMERY GARAY.
--- NOTE | 2018-07-26 19:35 | NUR ---
NURSE NOTES: Received pt from RN Ifeanyi, Pt is alert and oriented x4. Pt is on RA , No SOB or acute respiratory distress noted. Pt has intact IV access LFA 22G SL. Bed is locked and is in the lowest position, pt says he is comfortable and is sitting upright in a chair. call light within reach, will continue to monitor.
[2018-07-26 20:00] VITALS: BP 104/60
[2018-07-27] VITALS: BP 127/82
[2018-07-27] MEDS: HydrALAZINE 25mg tab ORAL SCH ×3 (00:18→16:48)
--- NOTE | 2018-07-27 02:49 | NUR ---
HAND-OFF: Report given to EMERY Joseph
--- NOTE | 2018-07-27 02:50 | NUR ---
NURSE NOTES: Received a report from EMERY Tan. Pt is sleeping comfortably. On room air. No c/o pain/discomfort. IV site is patent and intact. Bed in lowest position. Bed alarm is on. Call light within reach. Will continue to monitor.
[2018-07-27 04:00] VITALS: BP 134/78
[2018-07-27] MEDS: NovoLOG Insulin Flexpen SUBQ SCH ×4 (05:56→21:26)
[2018-07-27] MEDS: HYDROcodone/Acetamin 10/325 tab ORAL PRN ×4 (06:01→21:03)
--- NOTE | 2018-07-27 07:29 | NUR ---
NURSE NOTES: Patient is awake and alert,noted dressing to the right foot intact, foot with good color and warm to touch,patient states pain medication works.Call light within reach.
--- NOTE | 2018-07-27 07:39 | NUR ---
HAND-OFF: Report given to EMERY Edmond.
[2018-07-27 08:28] VITALS: BP 118/74
[2018-07-27] MEDS: Docusate 100mg cap ORAL SCH ×3 (08:30→19:07)
[2018-07-27] MEDS: Tamsulosin 0.4mg cap ORAL SCH ×2 (08:31→19:07)
[2018-07-27] MEDS: Aspirin EC 81mg tab ORAL SCH (08:31)
--- NOTE | 2018-07-27 08:45 | General Progress Note ---
Assessment/Plan Assessment/Plan: (1) Right LE pain (2) Right LE Ulcer (3) Right LE Abscess (4) Neuropathic pain Pt will be continued on [place] and Neurontin D/w Dr. Jara and he concurred. Subjective Date patient seen: July 27, 2018 Time patient seen: 07:30 - am Constitutional: Reports: weakness HEENT: Reports: no symptoms Cardiovascular: Reports: no symptoms Respiratory: Reports: no symptoms Gastrointestinal/Abdominal: Reports: no symptoms Genitourinary: Reports: no symptoms Neurologic/Psychiatric: Reports: no symptoms Hematologic/Lymphatic: Reports: no symptoms Allergies: Uncoded Allergies: MUSHROOMS (Allergy, Unknown, 07/21/18) Subjective Patient is in bed no signs of pain or distress he continued to c/o pain in his LE which has been tolerated on the [place]. Has no new complaints at this time. Objective Last 24 Hour Vital Signs Date Time Temp Pulse Resp B/P (MAP) Pulse Ox O2 Delivery O2 Flow Rate FiO2 07/27/18 08:30 118/74 07/27/18 08:28 97.9 71 18 118/74 (89) 98 07/27/18 06:31 97.7 07/27/18 06:01 134/78 07/27/18 04:00 97.7 62 18 134/78 (96) 98 07/27/18 00:19 127/82 07/27/18 00:18 127/82 07/27/18 00:00 98.1 65 18 127/82 (97) 100 07/26/18 21:00 Room Air 07/26/18 20:00 98.7 72 18 104/60 (75) 98 07/26/18 17:18 130/64 07/26/18 17:17 130/64 07/26/18 16:54 130/64 07/26/18 16:00 98.5 79 17 130/64 (86) 94 07/26/18 12:00 98.0 72 19 131/90 (104) 99 07/26/18 09:00 Room Air Intake and Output 07/26/18 07/27/18 19:00 07:00 Intake Total 421.666 ml 240 ml Output Total 800 ml Balance 421.666 ml -560 ml Intake Oral 240 ml IV Total 421.666 ml Output Urine Total 800 ml # Voids 2 Laboratory Tests 07/27/18 07:35: Random Vancomycin Level 12.5 Height (Feet): 6 Height (Inches): 2.00 Weight (Pounds): 250 Objective GENERAL: Alert, awake, and oriented. LUNGS: Decreased breath sounds bilaterally. HEART: S1 and S2 regular. ABDOMEN: Obese. EXTREMITIES: Bandages applied. Tenderness to palpation. NEURO: No changes. Michael Anaya July 27, 2018 08:45
[2018-07-27] MEDS ORDERED: Lisinopril 2.5mg tab ORAL SCH (09:00)
[2018-07-27] MEDS ORDERED: Vancomycin 1gm/D5W 275ml IVPB SCH ×2 (10:00)
--- NOTE | 2018-07-27 10:04 | NUR ---
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 SEPSIS VS: BP 118/74, P 71, T 97.9, RR 18, SpO2 98 NO LABS DRAWN TODAY IS:NOVOLOG SUBQ APRESOLINE 25mG FLOMAX 0.4mg SYNTHROID 50mcg CEFEPIME HCI 55ml IVPB GABAPENTIN 600mg ISORDIL 10mg ZESTRIL 2.5mg VANCOMYCIN 275ml IVPB MED/SURG STATUS
--- NOTE | 2018-07-27 11:37 | NUR ---
DISCHARGE PLANNING Discharge order noted Patient has been referred to [facility] [phone] Await Acceptance and Room Number
[2018-07-27 12:00] VITALS: BP 139/68
--- NOTE | 2018-07-27 12:57 | Surgery Progress Note ---
Surgery Progress Note Subjective Additional Comments no acute events. comfortable. resting. no complaints. leg edema improved with Abx Appreciate ID input MRI noted. dressings clean Objective Last 24 Hour Vital Signs Date Time Temp Pulse Resp B/P (MAP) Pulse Ox O2 Delivery O2 Flow Rate FiO2 07/27/18 12:35 122/73 07/27/18 11:05 123/77 07/27/18 09:00 Room Air 07/27/18 08:30 118/74 07/27/18 08:28 97.9 71 18 118/74 (89) 98 07/27/18 06:31 97.7 07/27/18 06:01 134/78 07/27/18 04:00 97.7 62 18 134/78 (96) 98 07/27/18 00:19 127/82 07/27/18 00:18 127/82 07/27/18 00:00 98.1 65 18 127/82 (97) 100 07/26/18 21:00 Room Air 07/26/18 20:00 98.7 72 18 104/60 (75) 98 07/26/18 17:18 130/64 07/26/18 17:17 130/64 07/26/18 16:54 130/64 07/26/18 16:00 98.5 79 17 130/64 (86) 94 I&O Intake and Output 07/26/18 07/27/18 19:00 07:00 Intake Total 421.666 ml 240 ml Output Total 800 ml Balance 421.666 ml -560 ml Intake Oral 240 ml IV Total 421.666 ml Output Urine Total 800 ml # Voids 2 Dressing: dry Wound: clean Drains: other Cardiovascular: RSR Respiratory: clear Abdomen: soft, flat, non-tender, present bowel sounds, non-distended Extremities: edema, no tenderness, no cyanosis Laboratory Tests Test 07/27/18 07:35 Random Vancomycin Level 12.5 ug/mL Plan Problems: (1) CHF (congestive heart failure) (2) Renal insufficiency (3) UTI (urinary tract infection) (4) Sepsis (5) Cellulitis and abscess of lower extremity Assessment & Plan: Patient presented on admission with ulcerations ulcerations to Medial, Posterior and lateral aspect of Right lower extremity. Wounds are large but shallow with scattered yellow slough at base of wound. Irregular margins that are erythematous. Surrounding erythema with edema noted. Wounds exuding moderate amounts of serous exudate. Pt complains of pain when R leg elevated. Scars from Historical harvest graft noted to medial R tibia. Erythema noted to LLE . Xerosis skin LLE . Pt educated to importance of good hygiene practices .Instructed to wash and moisturize dry skin daily.Instructed to wash between toes but to avoid applying lotion between toes. Tx.Plan: Cleanse wounds R lower ext with Saline. Apply Silvasorb Gel to wounds. Apply Alginate. Cover with ABD pads. Wrap with Kerlix from Base of Toes to [place] Daily and PRN. Keep lower extremities elevated when possible to help with venous outflow Abx as per ID, input noted and appreciated Will follow with recs thank you (6) Wound of right lower extremity Ezekiel Macias July 27, 2018 12:57
[2018-07-27] MEDS: Cefepime HCl 2 GM in D5W 55 ML IVPB SCH (13:23)
--- NOTE | 2018-07-27 15:39 | Nephrology Progress Note ---
Assessment/Plan Problem List: (1) Renal failure (ARF), acute on chronic (2) Diabetic nephropathy (3) UTI (urinary tract infection) (4) Cellulitis and abscess of lower extremity (5) Wound of right lower extremity (6) Hypothyroid (7) Cardiomyopathy Assessment Renal failure , Acute on chronic DM, Proteinuria HTN Cellulitis and abscess of lower extremity , Wound of right lower extremity UTI (urinary tract infection) Plan start synthroid, isordil, zestril Keep BP and BS in check antibiotics Urine studies Avoid Nephrotoxics 2D echo 15% EjFx Per orders Subjective ROS Limited/Unobtainable: No Constitutional: Reports: weakness Objective Objective Last 24 Hour Vital Signs Date Time Temp Pulse Resp B/P (MAP) Pulse Ox O2 Delivery O2 Flow Rate FiO2 07/27/18 12:35 122/73 07/27/18 12:00 98.7 80 18 139/68 (91) 96 07/27/18 11:05 123/77 07/27/18 09:00 Room Air 07/27/18 08:30 118/74 07/27/18 08:28 97.9 71 18 118/74 (89) 98 07/27/18 06:31 97.7 07/27/18 06:01 134/78 07/27/18 04:00 97.7 62 18 134/78 (96) 98 07/27/18 00:19 127/82 07/27/18 00:18 127/82 07/27/18 00:00 98.1 65 18 127/82 (97) 100 07/26/18 21:00 Room Air 07/26/18 20:00 98.7 72 18 104/60 (75) 98 07/26/18 17:18 130/64 07/26/18 17:17 130/64 07/26/18 16:54 130/64 07/26/18 16:00 98.5 79 17 130/64 (86) 94 Intake and Output 07/26/18 07/27/18 19:00 07:00 Intake Total 421.666 ml 240 ml Output Total 800 ml Balance 421.666 ml -560 ml Intake Oral 240 ml IV Total 421.666 ml Output Urine Total 800 ml # Voids 2 Laboratory Tests 07/27/18 07:35: Random Vancomycin Level 12.5 Height (Feet): 6 Height (Inches): 2.00 Weight (Pounds): 250 General Appearance: no apparent distress Cardiovascular: normal rate Respiratory/Chest: decreased breath sounds Abdomen: soft Objective no change Michael Eaton MD July 27, 2018 15:39
[2018-07-27 16:31] VITALS: BP 122/80
--- NOTE | 2018-07-27 16:39 | Infectious Diseases Prog Note ---
Assessment/Plan Problems: (1) Cellulitis and abscess of lower extremity Assessment & Plan: with pseudomonas and serratia , continue vancomycin , and cefepime for two weeks , vascular study to rule out PVD , no evidence of DVT on doppler (2) Sepsis Assessment & Plan: possible due to the above, continue wide spectrum antibiotics pending cultures (3) UTI (urinary tract infection) Assessment & Plan: already on zosyn pending culture (4) Renal insufficiency Assessment & Plan: continue hydration, monitor renal function (5) Wound of right lower extremity Assessment & Plan: with infection and blisters,due to pseudomonas and serratia , with no evidence of underlying osteomyelitis as per MRI of the right leg , continue wide spectrum antibiotics with vancomycin and cefepime for two weeks Subjective Constitutional: Reports: no symptoms HEENT: Reports: no symptoms Respiratory: Reports: no symptoms Breasts: Reports: no symptoms Cardiovascular: Reports: no symptoms Gastrointestinal/Abdominal: Reports: no symptoms Genitourinary: Reports: no symptoms Neurologic: Reports: no symptoms Psychiatric: Reports: no symptoms Skin: Reports: ulcer Endocrine: Reports: no symptoms Hematologic: Reports: no symptoms Musculoskeletal: Reports: pain Allergies: Uncoded Allergies: MUSHROOMS (Allergy, Unknown, 07/21/18) Subjective feels better over all wth less edema and redness in the right leg, still draining serosanguineous fluids Objective Vital Signs Last 24 Hour Vital Signs Date Time Temp Pulse Resp B/P (MAP) Pulse Ox O2 Delivery O2 Flow Rate FiO2 07/27/18 16:31 98.4 86 20 122/80 (94) 98 07/27/18 12:35 122/73 07/27/18 12:00 98.7 80 18 139/68 (91) 96 07/27/18 11:05 123/77 07/27/18 09:00 Room Air 07/27/18 08:30 118/74 07/27/18 08:28 97.9 71 18 118/74 (89) 98 07/27/18 06:31 97.7 07/27/18 06:01 134/78 07/27/18 04:00 97.7 62 18 134/78 (96) 98 07/27/18 00:19 127/82 07/27/18 00:18 127/82 07/27/18 00:00 98.1 65 18 127/82 (97) 100 07/26/18 21:00 Room Air 07/26/18 20:00 98.7 72 18 104/60 (75) 98 07/26/18 17:18 130/64 07/26/18 17:17 130/64 07/26/18 16:54 130/64 Height (Feet): 6 Height (Inches): 2.00 Weight (Pounds): 250 General Appearance: WD/WN, no acute distress HEENT: normocephalic, atraumatic, anicteric, mucous membranes moist, PERRL, EOMI, pharynx normal, supple, no JVD Respiratory/Chest: chest wall non-tender, no respiratory distress, no accessory muscle use, decreased breath sounds, crackles/rales Cardiovascular: normal peripheral pulses, normal rate, regular rhythm, no gallop/murmur, no JVD Abdomen: normal bowel sounds, soft, non tender, no organomegaly, non distended , no mass, no scars Extremities: no cyanosis, no clubbing Skin: no rash, no lesions, no ulcers Neurologic/Psychiatric: alert, oriented x 3, responsive Lymphatic: no neck adenopathy, no groin adenopathy Musculoskeletal: normal muscle bulk, no effusion Laboratory Tests Test 07/27/18 07:35 Random Vancomycin Level 12.5 ug/mL Current Medications Medications (Trade) Dose Ordered Sig/Aureliano Route PRN Reason Start Time Stop Time Status Last Admin Dose Admin Acetaminophen (Tylenol) 325 mg Q4H PRN ORAL Mild Pain (Pain Scale 1-3) 07/22/18 01:45 08/21/18 01:44 07/24/18 12:42 Acetaminophen/ Hydrocodone Bitart ([place] 10/325) 1 tab Q4H PRN ORAL For Pain 07/22/18 00:00 07/29/18 00:00 07/27/18 10:44 Aspirin (Ecotrin) 81 mg DAILY ORAL 07/22/18 09:00 08/21/18 08:59 07/27/18 08:31 Cefepime HCl 2 gm/ Dextrose 55 ml @ 110 mls/hr Q24H IVPB 07/25/18 14:00 08/01/18 13:59 07/27/18 13:23 Clonidine HCl (Catapres Tab) 0.1 mg Q4H PRN ORAL BP over 160 syst 07/23/18 16:00 08/22/18 15:59 Dextrose (Dextrose 50%) 25 ml Q30M PRN IV Hypoglycemia 07/22/18 06:15 08/21/18 06:14 Dextrose (Dextrose 50%) 50 ml Q30M PRN IV Hypoglycemia 07/22/18 06:15 08/21/18 06:14 Docusate Sodium (Colace) 100 mg TID ORAL 07/23/18 18:00 08/22/18 17:59 07/27/18 13:22 Gabapentin (Neurontin) 600 mg BID ORAL 07/25/18 18:00 08/24/18 17:59 07/27/18 08:31 Hydralazine HCl (Apresoline) 25 mg Q8HR@0000,0800,1600 ORAL 07/22/18 08:00 08/21/18 07:59 07/27/18 08:30 Insulin Aspart (NovoLOG) BEFORE MEALS AND HS SUBQ 07/22/18 06:30 08/21/18 06:29 07/27/18 12:32 Isosorbide Dinitrate (Isordil) 20 mg Q8HR ORAL 07/27/18 22:00 08/25/18 17:59 Levothyroxine Sodium (Synthroid) 50 mcg DAILY@0630 ORAL 07/25/18 06:30 08/24/18 06:29 07/27/18 06:01 Lisinopril (Zestril) 2.5 mg BID ORAL 07/27/18 18:00 08/26/18 08:59 Pantoprazole (Protonix) 40 mg DAILY ORAL 07/25/18 09:00 08/24/18 08:59 07/27/18 08:31 Tamsulosin HCl (Flomax) 0.4 mg BID ORAL 07/23/18 18:00 08/21/18 08:59 07/27/18 08:31 Vancomycin HCl (Vanco rx to dose) 1 ea DAILY MISC 07/22/18 09:00 08/21/18 08:59 07/26/18 09:00 Zolpidem Tartrate (Ambien) 5 mg BEDTIME PRN ORAL Insomnia 07/22/18 01:45 07/29/18 01:44 07/24/18 20:31 Linda Suazo M.D. July 27, 2018 16:39
--- NOTE | 2018-07-27 19:00 | NUR ---
NURSE NOTES: Patient resting ,will endorse that patient requesting pain medication when when due.Pain level at this time at a 5.
[2018-07-27] MEDS: Lisinopril 2.5mg tab ORAL SCH (19:13)
--- NOTE | 2018-07-27 19:45 | NUR ---
HAND-OFF: Report given to Britney LAND.
--- NOTE | 2018-07-27 19:45 | NUR ---
NURSE NOTES: Pt is alert and oriented x4. Pt is on RA , No SOB or acute respiratory distress noted. Pt has intact IV access LFA 22G SL. Bed is locked and is in the lowest position, pt says he is comfortable and is sitting upright in bed. call light within reach, Bed alarm on. will continue to monitor.
--- NOTE | 2018-07-27 19:45 | Progress Note ---
DATE: 07/27/2018 SUBJECTIVE: This is an elderly male who came to the emergency room for bilateral leg cellulitis, chronic pain, and nonhealing ulcer. The patient is currently in the bed. He looks otherwise comfortable. He is still complaining pain, 8/10 in both legs and draining. The patient denies any fever, chills, cough. PHYSICAL EXAMINATION: GENERAL: This is an elderly male who is still complaining pain, 10/10 and has a lot of drainage in the wound. VITAL SIGNS: Blood pressure is 130/70, pulse 74, respirations 18, no fever. SKIN: Good skin turgor. HEENT: NAD. CHEST: Bilateral crackles. CARDIOVASCULAR: Regular rhythm. No gallop. No murmur. ABDOMEN: Soft. EXTREMITIES: Right leg has lot of . GENITOURINARY: Examination deferred. LABORATORY DATA: Pending. ASSESSMENT: 1. Abscess of the right leg. 2. Cellulitis on the right leg. 3. Hypertension. 4. Diabetes. 5. Chronic pain. 6. Generalized weakness. PLAN: 1. Continue current treatment. 2. IV antibiotics. 3. Wound care. 4. Consider . 5. Pain management . Mik Martinez M.D. DR: ANNA JOB#: [id number] CC:
[2018-07-27 20:00] VITALS: BP 116/74
[2018-07-28] VITALS: BP 131/76
[2018-07-28] MEDS: HydrALAZINE 25mg tab ORAL SCH ×4 (01:11→17:09)
[2018-07-28] MEDS: HYDROcodone/Acetamin 10/325 tab ORAL PRN ×2 (01:11→05:38)
[2018-07-28 04:00] VITALS: BP 119/78
[2018-07-28] MEDS: NovoLOG Insulin Flexpen SUBQ SCH ×3 (06:30→17:10)
--- NOTE | 2018-07-28 07:45 | NUR ---
NURSE NOTES: Received patient in bed, awake, alert and oriented x4. Not in respiratory/cardiac distress.Dressing on right leg intact,bed is in lowest position and locked. Call light within reach. IV intact, no s/s of infiltration. Will continue plan of care.
[2018-07-28 08:00] VITALS: BP 139/77
--- NOTE | 2018-07-28 08:14 | NUR ---
HAND-OFF: Report given to Diana Guardado RN.
--- NOTE | 2018-07-28 08:51 | General Progress Note ---
Assessment/Plan Assessment/Plan: (1) Right LE pain (2) Right LE Ulcer (3) Right LE Abscess (4) Neuropathic pain Pt will be continued on Neurontin We will start Percocet 10/325mg PO 1 tab Q4H PRN severe pain. We will discontinue the [place]. D/w Dr. Jara and he concurred. Subjective Date patient seen: July 28, 2018 Time patient seen: 07:15 - am Allergies: Uncoded Allergies: MUSHROOMS (Allergy, Unknown, 07/21/18) Subjective Constitutional: Reports: weakness HEENT: Reports: no symptoms Cardiovascular: Reports: no symptoms Respiratory: Reports: no symptoms Gastrointestinal/Abdominal: Reports: no symptoms Genitourinary: Reports: no symptoms Neurologic/Psychiatric: Reports: no symptoms Hematologic/Lymphatic: Reports: no symptoms Subjective Patient reports that his pain has been worsening and minimal relief on the [place]. D/w him about Percocet and he seems to understand. No new complaints at this time. Objective Last 24 Hour Vital Signs Date Time Temp Pulse Resp B/P (MAP) Pulse Ox O2 Delivery O2 Flow Rate FiO2 07/28/18 06:08 98.0 07/28/18 05:38 119/78 07/28/18 04:00 98.0 68 18 119/78 (92) 98 07/28/18 01:11 131/76 07/28/18 00:00 98.2 78 18 131/76 (94) 98 07/27/18 21:03 116/74 07/27/18 21:00 Room Air 07/27/18 20:00 98.4 74 18 116/74 (88) 99 07/27/18 19:13 116/74 07/27/18 16:48 119/75 07/27/18 16:31 98.4 86 20 122/80 (94) 98 07/27/18 12:35 122/73 07/27/18 12:00 98.7 80 18 139/68 (91) 96 07/27/18 11:05 123/77 07/27/18 09:00 Room Air Intake and Output 07/27/18 07/28/18 18:59 06:59 Intake Total 1960 ml Output Total 125 ml 1000 ml Balance 1835 ml -1000 ml Intake Oral 1960 ml Output Urine Total 125 ml 1000 ml # Voids 8 Height (Feet): 6 Height (Inches): 2.00 Weight (Pounds): 250 Objective GENERAL: Alert, awake, and oriented. LUNGS: Decreased breath sounds bilaterally. HEART: S1 and S2 regular. ABDOMEN: Obese. EXTREMITIES: Bandages applied. Tenderness to palpation. NEURO: No changes. Michael Anaya July 28, 2018 08:51
[2018-07-28] MEDS: Tamsulosin 0.4mg cap ORAL SCH ×2 (09:01→17:12)
[2018-07-28] MEDS: Lisinopril 2.5mg tab ORAL SCH (09:01)
[2018-07-28] MEDS: Docusate 100mg cap ORAL SCH ×3 (09:01→17:12)
[2018-07-28] MEDS: Aspirin EC 81mg tab ORAL SCH (09:02)
--- NOTE | 2018-07-28 11:35 | NUR ---
INSPECTOR ASSEMBLY NOTES RECEIVED A CALL FROM ISABELL FROM [facility], PT DECLINED. MADE AWARE. INQUIRY FAXED TO [facility]. WILL FOLLOW UP. Addendum: 07/28/18 at 1651 by LEATHA LOWRY RN RN PT ACCEPTED TO [facility]. FAMILY IN AGREEMENT WITH DC @ THUS TIME. [facility] TO SET UP TRANSPORTATION.
--- NOTE | 2018-07-28 11:38 | Surgery Progress Note ---
Surgery Progress Note Subjective Additional Comments states that oral pain medications work much better. no pain today. wounds stable and improving Objective Last 24 Hour Vital Signs Date Time Temp Pulse Resp B/P (MAP) Pulse Ox O2 Delivery O2 Flow Rate FiO2 07/28/18 09:01 139/77 07/28/18 09:01 139/77 07/28/18 09:00 Room Air 07/28/18 08:00 97.1 98 16 139/77 (97) 98 07/28/18 06:08 98.0 07/28/18 05:38 119/78 07/28/18 04:00 98.0 68 18 119/78 (92) 98 07/28/18 01:11 131/76 07/28/18 00:00 98.2 78 18 131/76 (94) 98 07/27/18 21:03 116/74 07/27/18 21:00 Room Air 07/27/18 20:00 98.4 74 18 116/74 (88) 99 07/27/18 19:13 116/74 07/27/18 16:48 119/75 07/27/18 16:31 98.4 86 20 122/80 (94) 98 07/27/18 12:35 122/73 07/27/18 12:00 98.7 80 18 139/68 (91) 96 I&O Intake and Output 07/27/18 07/28/18 19:00 07:00 Intake Total 1960 ml Output Total 125 ml 1000 ml Balance 1835 ml -1000 ml Intake Oral 1960 ml Output Urine Total 125 ml 1000 ml # Voids 8 Dressing: saturated Wound: clean Cardiovascular: RSR Respiratory: clear Abdomen: soft, flat, non-tender, present bowel sounds Extremities: edema Plan Problems: (1) CHF (congestive heart failure) (2) Renal insufficiency (3) UTI (urinary tract infection) (4) Sepsis (5) Cellulitis and abscess of lower extremity Assessment & Plan: Patient presented on admission with ulcerations ulcerations to Medial, Posterior and lateral aspect of Right lower extremity. Wounds are large but shallow with scattered yellow slough at base of wound. Irregular margins that are erythematous. Surrounding erythema with edema noted. Wounds exuding moderate amounts of serous exudate. Pt complains of pain when R leg elevated. Scars from Historical harvest graft noted to medial R tibia. Erythema noted to LLE . Xerosis skin LLE . Pt educated to importance of good hygiene practices .Instructed to wash and moisturize dry skin daily.Instructed to wash between toes but to avoid applying lotion between toes. Tx.Plan: Cleanse wounds R lower ext with Saline. Apply Silvasorb Gel to wounds. Apply Alginate. Cover with ABD pads. Wrap with Kerlix from Base of Toes to [place] Daily and PRN. Keep lower extremities elevated when possible to help with venous outflow Abx as per ID, input noted and appreciated Will follow with recs thank you d/c planning (6) Wound of right lower extremity Ezekiel Macias July 28, 2018 11:38
[2018-07-28 12:00] VITALS: BP 138/77
[2018-07-28] MEDS: Cefepime HCl 2 GM in D5W 55 ML IVPB SCH (13:08)
--- NOTE | 2018-07-28 14:04 | Nephrology Progress Note ---
Assessment/Plan Problem List: (1) Renal failure (ARF), acute on chronic (2) Diabetic nephropathy (3) UTI (urinary tract infection) (4) Cellulitis and abscess of lower extremity (5) Wound of right lower extremity (6) Hypothyroid (7) Cardiomyopathy Assessment Renal failure , Acute on chronic DM, Proteinuria HTN Cellulitis and abscess of lower extremity , Wound of right lower extremity UTI (urinary tract infection) Plan start synthroid, isordil, zestril Keep BP and BS in check antibiotics Urine studies Avoid Nephrotoxics 2D echo 15% EjFx Per orders Subjective ROS Limited/Unobtainable: No Objective Objective Last 24 Hour Vital Signs Date Time Temp Pulse Resp B/P (MAP) Pulse Ox O2 Delivery O2 Flow Rate FiO2 07/28/18 13:08 138/77 07/28/18 12:00 98.6 68 17 138/77 (97) 98 07/28/18 09:01 139/77 07/28/18 09:01 139/77 07/28/18 09:00 Room Air 07/28/18 08:00 97.1 98 16 139/77 (97) 98 07/28/18 06:08 98.0 07/28/18 05:38 119/78 07/28/18 04:00 98.0 68 18 119/78 (92) 98 07/28/18 01:11 131/76 07/28/18 00:00 98.2 78 18 131/76 (94) 98 07/27/18 21:03 116/74 07/27/18 21:00 Room Air 07/27/18 20:00 98.4 74 18 116/74 (88) 99 07/27/18 19:13 116/74 07/27/18 16:48 119/75 07/27/18 16:31 98.4 86 20 122/80 (94) 98 Intake and Output 07/27/18 07/28/18 19:00 07:00 Intake Total 1960 ml Output Total 125 ml 1000 ml Balance 1835 ml -1000 ml Intake Oral 1960 ml Output Urine Total 125 ml 1000 ml # Voids 8 Height (Feet): 6 Height (Inches): 2.00 Weight (Pounds): 250 General Appearance: no apparent distress Cardiovascular: normal rate Respiratory/Chest: decreased breath sounds Abdomen: distended Objective no change Michael Eaton MD July 28, 2018 14:04
--- NOTE | 2018-07-28 14:49 | Cardiology Report ---
APPROVED REPORT EXAM: Two-dimensional and M-mode echocardiogram with Doppler and color Doppler. INDICATION Congestive Heart Failure M-Mode DIMENSIONS IVSd1.3 (0.7-1.1cm)Left Atrium (MM)4.5 (1.6-4.0cm) LVDd7.3 (3.5-5.6cm)Aortic Root3.3 (2.0-3.7cm) PWd1.0 (0.7-1.1cm)Aortic Cusp Exc.1.7 (1.5-2.0cm) IVSs1.1 cm Mild left ventricular enlargement. apical akinesis. Left ventricular ejection fraction estimated to be less than 15%. No evidence of left ventricular hypertrophy . Anterior Echo-free space, may be due to pericardial fat or effusion. Mild bi-atrial enlargement . Right ventricular size at upper limits of normal. Aortic valve calcification with normal cusp excursion . Mildly thickened mitral valve leaflets with normal excursion. Mild mitral annulus and aortic root calcification. Pulmonic valve not well visualized. IVC dilated at 2.8 cm without physiologic collapse suggestive of increased RA pressure. A color flow and spectral Doppler study was performed and revealed: No aortic insufficiency . Mild to moderate mitral regurgitation. Moderate tricuspid regurgitation. Tricuspid systolic velocities suggests peak right ventricular systolic pressure of 51 mmHg,consistent with moderate pulmonary hypertension .
--- NOTE | 2018-07-28 15:30 | NUR ---
NURSE NOTES: Placed a call to Dr. Martinez office for discharge medication. C/O Tasha. Awaiting for return call.
[2018-07-28] MEDS ORDERED: CEFEPIME-D2 GM/50 ML IVPB (15:46)
[2018-07-28 16:00] VITALS: BP 149/84
[2018-07-28] MEDS ORDERED: LEVEMIR100 UNIT/1 SUBQ (16:24)
--- NOTE | 2018-07-28 16:40 | NUR ---
NURSE NOTES: Rn placed a call to [facility] but per Courtney nurses are getting another report. Will call [facility] in 20 mins.
--- NOTE | 2018-07-28 16:52 | Infectious Diseases Prog Note ---
Assessment/Plan Problems: (1) Cellulitis and abscess of lower extremity Assessment & Plan: with pseudomonas and serratia , continue vancomycin , and cefepime for two weeks total , vascular study to rule out PVD was done pending report , no evidence of DVT on doppler (2) Sepsis Assessment & Plan: possible due to the above, continue wide spectrum antibiotics pending cultures (3) UTI (urinary tract infection) Assessment & Plan: already on cefepime (4) Renal insufficiency Assessment & Plan: continue hydration, monitor renal function (5) Wound of right lower extremity Assessment & Plan: with infection and blisters,due to pseudomonas and serratia , with no evidence of underlying osteomyelitis as per MRI of the right leg , continue wide spectrum antibiotics with vancomycin and cefepime for two weeks total with close monitor of his trough to keep between 10-15 , and pharmacy to dose Subjective Constitutional: Reports: no symptoms HEENT: Reports: no symptoms Respiratory: Reports: no symptoms Breasts: Reports: no symptoms Cardiovascular: Reports: no symptoms Gastrointestinal/Abdominal: Reports: no symptoms Genitourinary: Reports: no symptoms Neurologic: Reports: no symptoms Psychiatric: Reports: no symptoms Skin: Reports: no symptoms Endocrine: Reports: no symptoms Hematologic: Reports: no symptoms Musculoskeletal: Reports: no symptoms Allergies: Uncoded Allergies: MUSHROOMS (Allergy, Unknown, 07/21/18) Subjective feels better over all wth less edema and redness in the right leg, still draining serosanguineous fluids from his wounds Objective Vital Signs Last 24 Hour Vital Signs Date Time Temp Pulse Resp B/P (MAP) Pulse Ox O2 Delivery O2 Flow Rate FiO2 07/28/18 13:08 138/77 07/28/18 12:00 98.6 68 17 138/77 (97) 98 07/28/18 09:01 139/77 07/28/18 09:01 139/77 07/28/18 09:00 Room Air 07/28/18 08:00 97.1 98 16 139/77 (97) 98 07/28/18 06:08 98.0 07/28/18 05:38 119/78 07/28/18 04:00 98.0 68 18 119/78 (92) 98 07/28/18 01:11 131/76 07/28/18 00:00 98.2 78 18 131/76 (94) 98 07/27/18 21:03 116/74 07/27/18 21:00 Room Air 07/27/18 20:00 98.4 74 18 116/74 (88) 99 07/27/18 19:13 116/74 07/27/18 16:48 119/75 Height (Feet): 6 Height (Inches): 2.00 Weight (Pounds): 250 General Appearance: WD/WN, no acute distress HEENT: normocephalic, atraumatic, anicteric, mucous membranes moist, PERRL, EOMI, pharynx normal, supple, no JVD Respiratory/Chest: chest wall non-tender, lungs clear, normal breath sounds, no respiratory distress, no accessory muscle use, decreased breath sounds Cardiovascular: normal peripheral pulses, normal rate, regular rhythm, no gallop/murmur, no JVD Abdomen: normal bowel sounds, soft, non tender, no organomegaly, non distended , no mass, no scars Extremities: no cyanosis, no clubbing Skin: no rash, no lesions, no ulcers Neurologic/Psychiatric: alert, oriented x 3, responsive Lymphatic: no neck adenopathy, no groin adenopathy Musculoskeletal: normal muscle bulk, no effusion Current Medications Medications (Trade) Dose Ordered Sig/Aureliano Route PRN Reason Start Time Stop Time Status Last Admin Dose Admin Acetaminophen (Tylenol) 325 mg Q4H PRN ORAL Mild Pain (Pain Scale 1-3) 07/22/18 01:45 08/21/18 01:44 07/24/18 12:42 Aspirin (Ecotrin) 81 mg DAILY ORAL 07/22/18 09:00 08/21/18 08:59 07/28/18 09:02 Cefepime HCl 2 gm/ Dextrose 55 ml @ 110 mls/hr Q24H IVPB 07/25/18 14:00 08/01/18 13:59 07/28/18 13:08 Clonidine HCl (Catapres Tab) 0.1 mg Q4H PRN ORAL BP over 160 syst 07/23/18 16:00 08/22/18 15:59 Dextrose (Dextrose 50%) 25 ml Q30M PRN IV Hypoglycemia 07/22/18 06:15 08/21/18 06:14 Dextrose (Dextrose 50%) 50 ml Q30M PRN IV Hypoglycemia 07/22/18 06:15 08/21/18 06:14 Docusate Sodium (Colace) 100 mg TID ORAL 07/23/18 18:00 08/22/18 17:59 07/28/18 13:07 Gabapentin (Neurontin) 600 mg BID ORAL 07/25/18 18:00 08/24/18 17:59 07/28/18 09:02 Hydralazine HCl (Apresoline) 25 mg Q8HR@0000,0800,1600 ORAL 07/22/18 08:00 08/21/18 07:59 07/28/18 09:01 Insulin Aspart (NovoLOG) BEFORE MEALS AND HS SUBQ 07/22/18 06:30 08/21/18 06:29 07/28/18 11:50 Isosorbide Dinitrate (Isordil) 20 mg Q8HR ORAL 07/27/18 22:00 08/25/18 17:59 07/28/18 13:08 Levothyroxine Sodium (Synthroid) 50 mcg DAILY@0630 ORAL 07/25/18 06:30 08/24/18 06:29 07/28/18 05:38 Lisinopril (Zestril) 5 mg BID ORAL 07/28/18 18:00 08/26/18 08:59 Oxycodone/ Acetaminophen (Percocet 10/325) 1 tab Q4H PRN ORAL severe pain 07/28/18 09:00 08/04/18 08:59 07/28/18 15:35 Pantoprazole (Protonix) 40 mg DAILY ORAL 07/25/18 09:00 08/24/18 08:59 07/28/18 09:01 Tamsulosin HCl (Flomax) 0.4 mg BID ORAL 07/23/18 18:00 08/21/18 08:59 07/28/18 09:01 Vancomycin HCl (Vanco rx to dose) 1 ea DAILY MISC 07/22/18 09:00 08/21/18 08:59 07/26/18 09:00 Zolpidem Tartrate (Ambien) 5 mg BEDTIME PRN ORAL Insomnia 07/22/18 01:45 07/29/18 01:44 07/24/18 20:31 Linda Suazo M.D. July 28, 2018 16:52
[2018-07-28 17:15] VITALS: BP 149/84
--- NOTE | 2018-07-28 17:31 | NUR ---
NURSE NOTES: Transfer report given to Lisa. Ambulance will be late for 30 mins per [facility].
--- NOTE | 2018-07-28 17:32 | NUR ---
NURSE NOTES: Rn endorsed to Lisa Kay @ [facility] to continue with cefepime 2gm Q24hr x 7 more days and vancomycin x 7 more days, vanco trough needs to be done and SNF pharmacy to dose for vanco.
[2018-07-28] MEDS ORDERED: Lisinopril 2.5mg tab ORAL SCH (18:00)
--- NOTE | 2018-07-28 18:15 | NUR ---
NURSE NOTES: RN followed up with [facility]. Per [facility] ambulance will be late for 15 mins.
--- NOTE | 2018-07-28 19:10 | NUR ---
NURSE NOTES: Patient was picked up by [facility] accompanied by two ambulance personnel via gurney in stable condition. IV and ID was removed.No s/s of infection on IV removal site. Patient is clean and dry. Wound dressing was changed and picture was obtained. 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 All belongings accounted for. RN checked with the patient. Patient brought his wheel chair with him. Skin assessment done, no new skin issue. discharge instruction given to the patient.
--- NOTE | 2018-07-29 09:59 | Diagnostic Imaging Report ---
APPROVED REPORT CPT Code: 95169 Symptoms Comments: Wound right ankle RIGHT LEG: Common femoral artery waveform analysis is within normal limits at rest. Color flow duplex sonography reveals calcification throughout the superficial femoral artery. A mild (40-49%) stenosis is seen in the distal superficial femoral artery. There is no evidence of occlusion within this segment. The popliteal artery is patent. The tibioperoneal trunk was not well visualized. The mid segments of tibial arteries were not imaged, due to wound. The distal posterior, proximal anterior and dorsalis pedis arteries are also mildly calcified. The Doppler tibial artery waveform analysis is compatible with mild ischemia at rest. Incidental finding of right groin lymph node.
--- NOTE | 2018-07-29 11:38 | Discharge Summary ---
Discharge Summary Discharge Summary _ DATE OF ADMISSION: 07/21/2018 DATE OF DISCHARGE: 07/28/2018 DISCHARGED BY: Dr. Martinez REASON FOR ADMISSION: 68 years old male with past medical history of hypertension, heart failure, PVD , diabetes mellitus type 2, GERD, status post CABG , presented for evaluation of right lower leg wound. Patient reported increased pain, described as sharp and aching . Surrounding erythema noted, but no drainage and no pus. Tetanus shot up-to-date . Patient denied fever and chills. Upon evaluation vital signs were stable Laboratory work-up revealed no leukocytosis, hemoglobin 12.6, hematocrit 39.6, neutrophils 80. Stable LFT. EKG revealed normal sinus rhythm with first-degree AV block. Troponin negative. pro BNP 83715. Chest x-ray demonstrated cardiomegaly with mild interstitial congestive changes Urinalysis demonstrated pyuria, +2 leukocyte esterase, and few bacteria In emergency department patient pancultured , started on empiric antibiotic and admitted for further management. CONSULTANTS: ID specialist Dr. Suazo suspender maker Dr. Eaton surgery Dr. Macias pain specialist Dr. Jara HOSPITAL COURSE: Patient admitted to medical surgical floor. Patient started on diuresis with close monitoring of volumes and cardiorenal parameters. Wound care provided as per surgeon recommendation Blood cultures were negative. Wound culture revealed Pseudomonas and Serratia. Urine culture was negative. Antibiotic regimen provided as per infectious disease specialist recommendation. ID specialist recommended to continue vancomycin and cefepime for total of 2 weeks. Wound care was provided as per surgeon recommendations . Continue wound care at the facility. No acute surgical intervention was necessary at this time. [employer] followed. Echocardiogram revealed ejection fraction of less than 15% with no evidence of left ventricular hypertrophy. Apical akinesis noted. Moderate mitral and tricuspid regurgitation. Moderate pulmonary hypertension with right ventricular systolic pressure of 5 Venous duplex bilateral lower extremity revealed no evidence of acute DVT. Arterial duplex of the right lower extremity revealed mild stenosis 40 to 50% in the distal superficial femoral artery no evidence of occlusion of the popliteal artery was patent. The distal posterior, proximal anterior and dorsalis pedis artery were mildly calcified. The Doppler tibial artery waveform analysis was compatible with mild ischemia at rest. Patient was continued on antiplatelet therapy with aspirin. Anti-failure medication regimen was provided in accordance with guideline and consistent with CHIQUI inhibitor, hydralazine, isosorbide and diuretic. Blood pressure was managed with CHIQUI inhibitor and hydralazine. Lipid panel was stable Patient will need further cardiology evaluation as outpatient for probable AICD placement, considering ejection fraction less than 15. Renal parameters and electrolytes were closely monitored. Electrolytes corrected as needed. Creatinine remained at baseline. Patient also had evidence of diabetic nephropathy. Urine studies were done. Per suspender maker, patient had acute on chronic renal failure. [employer] recommended avoid nephrotoxins in future and closely monitor renal parameters at the facility Pain management provided as per pain specialist recommendation. Hemoglobin and hematocrit were closely monitored with goal to keep hemoglobin above 7. Anemia work-up was consistent with anemia of chronic disease. Hemoglobin and hematocrit remained at baseline: hemoglobin 11.7, hematocrit 36.2. TSH elevated . Patient was started on levothyroxine. No prior history of hypothyroidism. Repeat TSH in 4 weeks. GI prophylaxis provided. Flomax started. Blood sugar was managed with sliding scale of insulin. Globin A1c 6.6 at goal. Bowel regimen instituted. Patient clinically stabilized and was ready [facility] care. Patient need to continue antibiotic as per ID recommendation to complete the course. FINAL DIAGNOSES: Sepsis Cellulitis and abscess of lower extremity Wound of right lower extremity Possible UTI CHF Cardiomyopathy with EF <15% Acute on chronic renal failure Diabetic nephropathy Hypertension Diabetes mellitus Chronic back pain Hypothyroidism, newly diagnosed DISCHARGE MEDICATIONS: See Medication Reconciliation list. DISCHARGE INSTRUCTIONS: Patient was discharged to [facility] for further management . I have been assigned to dictate discharge summary for this account. I was not involved in the patient's management. Skye Reyes NP July 29, 2018 11:37
== END 2018-07-28 19:10 | disposition short-term general hospital (02) | DRG 872 ==
LOC: EDBD 19:03 → EMR 19:32 → 4E 20:21 → EDBEDREQ 21:22 → 4E 23:20
DX: A41.9 Sepsis, unspecified organism (principal); L03.116 Cellulitis of left lower limb; N39.0 Urinary tract infection, site not specified; L97.919 Non-pressure chronic ulcer of unspecified part of right lower leg with unspecified severity; L03.115 Cellulitis of right lower limb; L02.415 Cutaneous abscess of right lower limb; N17.9 Acute kidney failure, unspecified; I13.0 Hypertensive heart and chronic kidney disease with heart failure and stage 1 through stage 4 chronic kidney disease, or unspecified chronic kidney disease; I42.9 Cardiomyopathy, unspecified; I50.9 Heart failure, unspecified; E11.9 Type 2 diabetes mellitus without complications; G89.29 Other chronic pain; M54.9 Dorsalgia, unspecified; K21.9 Gastro-esophageal reflux disease without esophagitis; I73.9 Peripheral vascular disease, unspecified; I34.0 Nonrheumatic mitral (valve) insufficiency; I36.1 Nonrheumatic tricuspid (valve) insufficiency; B96.5 Pseudomonas (aeruginosa) (mallei) (pseudomallei) as the cause of diseases classified elsewhere; B96.89 Other specified bacterial agents as the cause of diseases classified elsewhere; I25.10 Atherosclerotic heart disease of native coronary artery without angina pectoris; Z95.1 Presence of aortocoronary bypass graft; E11.22 Type 2 diabetes mellitus with diabetic chronic kidney disease; N18.9 Chronic kidney disease, unspecified; E03.9 Hypothyroidism, unspecified; G62.9 Polyneuropathy, unspecified
CPT/HCPCS: 36415; 71045; 80053; 80061; 80202; 81003; 82248; 82550; 82607; 82728; 82746; 82962; 82977; 83036; 83540; 83550; 83605; 83735; 83880; 84100; 84300; 84443; 84484; 84550; 85025; 85610; 85730; 86140; 87040; 87070; 87081; 87086; 87181; 87205; 89050; 93005; 93306; 93926; 93970; 96361; 96365; 96366; 96368; 99285; J1815; J8499